=== PATIENT | male | born 1935 | race Caucasian/White ===

== ENCOUNTER → 2017-05-13 | Day surgery (SDC) | payer MEDICARE ==
[~2017-05-13] VITALS: Ht 172.7 cm; Wt 86.5 kg
[~2017-05-13] MED LIST: ACETAMINOPHEN 325 MG TAB PO PRN; ASPI81TA11 PO; CHLORHEXIDINE GLUCONATE 2 % 1 PACK (2 CLOTHS) TOPICAL PRN; CYCLOPENTOLATE HCL 1% OPHT SOLN 2 ML BTL ONE; DIAZ10TA PO; FLURBIPROFEN 0.03% OPHT SOLN 2.5 ML BTL ONE; GABA300C5 PO; IBUP-232 PO; INSULIN HUMAN REGULAR 1,000 UNITS/10 ML VIAL SQ PRN; LACTATED RINGER'S 1000 ML IV PRN; LEVA750T9 PO; LIDOCAINE HCL 1% PF 30 ML VIAL ONE; LIDOCAINE HCL 2% JELLY 5 ML SYRINGE ONE; LIDOCAINE HCL 2% JELLY 5 ML SYRINGE RIGHT EYE ONE; METOPROLOL TARTRATE 25 MG TAB PO PRN; METR-1 PO; PHENYLEPHRINE HCL 10% OPTH SOLN 5 ML BTL ONE; POVIDONE IODINE 5% (ANTISEPSIS KIT) 4 APPLICATIONS EACH NARE PRN; PROPARACAINE HCL 0.5% OPHT SOLN 15 ML BTL ONE; PROPARACAINE HCL 0.5% OPHT SOLN 15 ML BTL RIGHT EYE ONE; SODIUM CHLORID 0.9% 500 ML IV PRN; TOBRAMYCIN/DEXAMETHASONE OPTH OINT 3.5 GM TUBE ONE; TROPICAMIDE 1% OPHT SOLN 15 ML BTL ONE
[2017-05-13 06:50] VITALS: BP 159/92; PULSE 81; RESP 18; TEMP 98.4; O2SAT 98
[2017-05-13] MEDS: PHENYLEPHRINE HCL 10% OPTH SOLN 5 ML BTL RIGHT EYE SCH ×4 (07:00→07:15)
[2017-05-13] MEDS: TROPICAMIDE 1% OPHT SOLN 15 ML BTL RIGHT EYE SCH ×4 (07:00→07:15)
[2017-05-13] MEDS: FLURBIPROFEN 0.03% OPHT SOLN 2.5 ML BTL RIGHT EYE SCH ×4 (07:00→07:15)
[2017-05-13] MEDS: CYCLOPENTOLATE HCL 1% OPHT SOLN 2 ML BTL RIGHT EYE SCH ×4 (07:00→07:15)
[2017-05-13 08:16] VITALS: TEMP 97.4
[2017-05-13 08:40] VITALS: BP 150/81; PULSE 74; RESP 16; O2SAT 98
--- NOTE | 2017-05-13 09:55 | MP ---
cc: JAIME BOGGS M.D. [facility] #: [id number] DATE OF SURGERY 05/13/2017 PREOPERATIVE DIAGNOSIS: Visually significant cataract right eye. POSTOPERATIVE DIAGNOSIS: Visually significant cataract right eye. OPERATION: Phacoemulsification with posterior chamber lens implantation, right eye. SURGEON: Jaime Boggs MD ANESTHESIA: Topical with MAC. COMPLICATIONS: None. PROCEDURE: After informed consent was obtained, the patient was brought into the operative suite and placed on appropriate monitors by the Anesthesia Service. The patient had been given dilating drops and topical lidocaine gel in the holding area. The patient's operative eye was then prepped and draped in the usual sterile fashion. A wire lid speculum was placed. Further 2% lidocaine was then dropped on the cornea prior to beginning the procedure. A paracentesis incision was made in the peripheral cornea with a 1 mm glo keratome. The anterior chamber was filled with viscoelastic. The anterior chamber was then entered through a stepped, clear corneal incision using a sharp 3 mm glo keratome. A circular tear capsulorrhexis was then made with a bent needle cystitome. Following hydrodissection of the lens nucleus with balance saline, phacoemulsification of the nucleus was performed using a modified chopping technique. The remaining cortex was removed with irrigation/aspiration. The prior two procedures were both performed using the handpieces of the [employer] phaco unit. The capsular bag was then filled with viscoelastic. The intraocular lens was then injected into the capsular bag and positioned. The type of intraocular lens and its power can be found elsewhere in this chart. The remaining viscoelastic was then removed from the anterior chamber with the IA handpiece. The anterior chamber was reformed with balanced saline. The wound was then closed securely with stromal hydration. It was found to be watertight to an intraocular pressure of at least 30 mmHg by palpation. A small amount of balanced salt solution was then removed through the paracentesis site and the intraocular pressure at the end of the case was approximately 20 by palpation. All drapes were then removed. TobraDex ointment was then placed in the eye, which was closed beneath a semi-pressure patch dressing. The patient tolerated this procedure well and left the operating room awake and alert. The patient is to follow-up in my office in the morning. MD TRAVIS Willett/ROLAND /9:55 AM /9:58 AM
== END | disposition home or self-care (01) ==
LOC: PHSDC 06:21
PROVIDERS: ATTEND Optometrist Occupational Vision
DX: H25.811 Combined forms of age-related cataract, right eye (principal); H53.003 Unspecified amblyopia, bilateral; I12.9 Hypertensive chronic kidney disease with stage 1 through stage 4 chronic kidney disease, or unspecified chronic kidney disease; N18.9 Chronic kidney disease, unspecified; G62.9 Polyneuropathy, unspecified; E78.5 Hyperlipidemia, unspecified; D47.2 Monoclonal gammopathy; K57.90 Diverticulosis of intestine, part unspecified, without perforation or abscess without bleeding; Z85.828 Personal history of other malignant neoplasm of skin
CPT/HCPCS: 00142; 66984; J7040; V2632

== ENCOUNTER → 2017-06-27 | Day surgery (SDC) | payer MEDICARE ==
[~2017-06-27] VITALS: Ht 174 cm; Wt 86.0 kg
[~2017-06-27] MED LIST changes: +HYALURONIDASE/LIDOCAINE/EPINEPHRINE/BUPIVACAINE 6 ML SYR LEFT EYE ONE; -IBUP-232 PO; -LACTATED RINGER'S 1000 ML IV PRN; -LEVA750T9 PO; -LIDOCAINE HCL 2% JELLY 5 ML SYRINGE RIGHT EYE ONE; -METR-1 PO; +PROPARACAINE HCL 0.5% OPHT SOLN 15 ML BTL LEFT EYE ONE; -PROPARACAINE HCL 0.5% OPHT SOLN 15 ML BTL ONE; -PROPARACAINE HCL 0.5% OPHT SOLN 15 ML BTL RIGHT EYE ONE
[2017-06-27] MEDS: TROPICAMIDE 1% OPHT SOLN 15 ML BTL LEFT EYE SCH ×4 (07:10→07:25)
[2017-06-27] MEDS: CYCLOPENTOLATE HCL 1% OPHT SOLN 2 ML BTL LEFT EYE SCH ×4 (07:10→07:25)
[2017-06-27] MEDS: FLURBIPROFEN 0.03% OPHT SOLN 2.5 ML BTL LEFT EYE SCH ×4 (07:10→07:25)
[2017-06-27] MEDS: PHENYLEPHRINE HCL 10% OPTH SOLN 5 ML BTL LEFT EYE SCH ×4 (07:10→07:25)
[2017-06-27 09:00] VITALS: TEMP 97.7
[2017-06-27 09:20] VITALS: BP 157/82; PULSE 64; RESP 16; O2SAT 97
--- NOTE | 2017-06-29 22:18 | MP ---
cc: JIAME BOGGS MD [facility] #[id number] DATE OF SURGERY 06/27/17 POSTOPERATIVE DIAGNOSIS: Visually significant cataract left eye. OPERATION: Phacoemulsification with posterior chamber lens implantation, left eye. SURGEON: Jaime Boggs MD ANESTHESIA: Topical with MAC. COMPLICATIONS: None. PROCEDURE: After informed consent was obtained, the patient was brought into the operative suite and placed on appropriate monitors by the Anesthesia Service. The patient had been given dilating drops and topical lidocaine gel in the holding area. The patient's operative eye was then prepped and draped in the usual sterile fashion. A wire lid speculum was placed. Further 2% lidocaine was then dropped on the cornea prior to beginning the procedure. A paracentesis incision was made in the peripheral cornea with a 1 mm lynn keratome. The anterior chamber was filled with viscoelastic. The anterior chamber was then entered through a stepped, clear corneal incision using a sharp 3 mm lynn keratome. A circular tear capsulorrhexis was then made with a bent needle cystitome. Following hydrodissection of the lens nucleus with balance saline, phaco-emulsification of the nucleus was performed using a modified chopping technique. The remaining cortex was removed with irrigation/aspiration. The prior two procedures were both performed using the handpieces of the [employer] phaco unit. The capsular bag was then filled with viscoelastic. The intraocular lens was then injected into the capsular bag and positioned. The type of intraocular lens and its power can be found elsewhere in this chart. The remaining viscoelastic was then removed from the anterior chamber with the IA handpiece. The anterior chamber was reformed with balanced saline. The wound was then closed securely with stromal hydration. It was found to be watertight to an intraocular pressure of at least 30 mmHg by palpation. A small amount of balanced salt solution was then removed through the paracentesis site and the intraocular pressure at the end of the case was approximately 20 by palpation. All drapes were then removed. TobraDex ointment was then placed in the eye, which was closed beneath a semi-pressure patch dressing. The patient tolerated this procedure well and left the operating room awake and alert. The patient is to follow-up in my office in the morning. ADDENDUM After the clear corneal incisions were sealed watertight, an 8 mm limbal relaxing incision was made with a 600 micron Lynn blade centered around the nasal 180 degree [place]. MD TRAVIS Willett/ /10:42 AM /10:11 PM
== END | disposition home or self-care (01) ==
LOC: PHSDC 06:17
PROVIDERS: ATTEND Optometrist Occupational Vision
DX: H25.12 Age-related nuclear cataract, left eye (principal)
CPT/HCPCS: 00142; 66984; J7040; V2632

== ENCOUNTER 2018-02-24 01:21 | Observation (INO) | payer MEDICARE ==
[~2018-02-24] VITALS: Ht 170.2 cm; Wt 86.0 kg
[2018-02-24] VITALS (9 sets, daily range): BP systolic 120–165; BP diastolic 71–89; PULSE 76–96; RESP 16–20; TEMP 97.4–98.5; O2SAT 95–99
[~2018-02-24 01:21] MED LIST changes: -ACETAMINOPHEN 325 MG TAB PO PRN; -ASPI81TA11 PO; -CHLORHEXIDINE GLUCONATE 2 % 1 PACK (2 CLOTHS) TOPICAL PRN; -CYCLOPENTOLATE HCL 1% OPHT SOLN 2 ML BTL ONE; -FLURBIPROFEN 0.03% OPHT SOLN 2.5 ML BTL ONE; -HYALURONIDASE/LIDOCAINE/EPINEPHRINE/BUPIVACAINE 6 ML SYR LEFT EYE ONE; -INSULIN HUMAN REGULAR 1,000 UNITS/10 ML VIAL SQ PRN; -LIDOCAINE HCL 1% PF 30 ML VIAL ONE; -LIDOCAINE HCL 2% JELLY 5 ML SYRINGE ONE; -METOPROLOL TARTRATE 25 MG TAB PO PRN; -PHENYLEPHRINE HCL 10% OPTH SOLN 5 ML BTL ONE; -POVIDONE IODINE 5% (ANTISEPSIS KIT) 4 APPLICATIONS EACH NARE PRN; -PROPARACAINE HCL 0.5% OPHT SOLN 15 ML BTL LEFT EYE ONE; -SODIUM CHLORID 0.9% 500 ML IV PRN; -TOBRAMYCIN/DEXAMETHASONE OPTH OINT 3.5 GM TUBE ONE; -TROPICAMIDE 1% OPHT SOLN 15 ML BTL ONE
[2018-02-24] MEDS ORDERED: PANTOPRAZOLE INJ 80 MG in SODIUM CHLORIDE 0.9% INJ 35 ML IV ONE (02:00)
[2018-02-24] MEDS: SODIUM CHLOR 0.9% 1000 ML INJ 1,000 ML IV SCH ×3 (02:18→22:32)
[2018-02-24 02:20] LABS: AUTOMATED NEUTROPHIL # 6.6 TH/MM3 (1.8-7.7); BASOPHIL # 0.1 TH/MM3 (0-0.2); BASOPHIL % 0.7 % (0.0-2.0); EOSINOPHIL # 0.2 TH/MM3 (0-0.4); EOSINOPHIL % 2.3 % (0.0-4.0); HEMATOCRIT 31.9 % (39.0-51.0); HEMOGLOBIN 10.6 GM/DL (13.0-17.0); LYMPH % 20.5 % (9.0-44.0); MEAN CELL VOLUME 87.6 FL (80.0-100.0); MEAN CORPUSCULAR HEMOGLOBIN 29.3 PG (27.0-34.0); MEAN CORPUSCULAR HGB CONC 33.4 % (32.0-36.0); MEAN PLATELET VOLUME 7.6 FL (7.0-11.0); MONO % 7.1 % (0.0-8.0); MONOCYTE # 0.7 TH/MM3 (0-0.9); NEUT % 69.4 % (16.0-70.0); PLATELET COUNT 219 TH/MM3 (150-450); RED BLOOD COUNT 3.64 MIL/MM3 (4.50-5.90); WHITE BLOOD COUNT 9.6 TH/MM3 (4.0-11.0)
--- NOTE | 2018-02-24 02:20 | PD ---
HPI Chief Complaint: GI Complaint Time Seen by Provider: 01:49 Travel History International Travel<30 days: No Contact w/Intl Traveler<30days: No Traveled to known affect area: No History of Present Illness HPI The patient is an 82 year old male who presents to the [facility] emergency department with a history of bright red blood per rectum that he first noticed 2 weeks ago. He reports that he had a one-time episode at that time and then this evening around 10:30 PM he developed a recurrence. He reports that again at 1 AM he noticed another bloody stool. He reports that he felt lightheaded when this occurred. He denies having any lightheaded sensation currently, chest pain, chest pressure, or shortness of breath. He denies any prior history of GI bleed. He denies taking any [id number] anti-inflammatory pain medications. He reports that he is followed by Dr. Kothari for his GI care. He believes that his last colonoscopy was 4-5 years ago. He reports that he does have a history of diverticulitis. He denies any symptoms of indigestion, heartburn, or acid reflux. Otherwise on review of systems, he denies having any known recent fevers, cough or congestion, neck pain, abdominal pain, vomiting, urinary symptoms, or neurologic symptoms. 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 AICD: No Eye Surgery: Yes (RIGHT PHACO CATARACT REMOVAL) Joint Replacement: No Pacemaker: No Social History Alcohol Use: Yes (occ) Tobacco Use: No Substance Use: No Allergies-Medications (Allergen,Severity, Reaction): Coded Allergies: No Known Allergies (Unverified Allergy, Unknown, 02/24/18) Reported Meds & Prescriptions Reported Meds & Active Scripts Active Reported Gabapentin 300 Mg Cap 300 Mg PO BID Review of Systems Except as stated in HPI: all other systems reviewed are Neg General / Constitutional: No: Fever Eyes: No: Visual changes HENT: No: Headaches Cardiovascular: No: Chest Pain or Discomfort Respiratory: No: Shortness of Breath Gastrointestinal: Positive: Hematochezia, No: Nausea, Vomiting, Diarrhea, Abdominal Pain, Hematemesis, Changes in Bowel Habits, Indigestion, Loss of Appetite Genitourinary: No: Dysuria Musculoskeletal: No: Pain Skin: No Rash Neurologic: No: Weakness Psychiatric: No: Depression Endocrine: No: Polydipsia Hematologic/Lymphatic: No: Easy Bruising Physical Exam Narrative General: The patient is a well-developed well-nourished male in no acute distress, slightly pale appearing on exam. Head and Neck exam: Head is normocephalic atraumatic. Eyes: EOMI, pupils are equal round and reactive to light. Nose: Midline septum with pink mucous membranes Mouth: Dentition unremarkable. Moist mucus membranes. Posterior oropharynx is not erythematous. No tonsillar hypertrophy. Uvula midline. Airway patent. Neck: No palpable lymphadenopathy. No nuchal rigidity. No thyromegaly. Cardiovascular: Regular rate and rhythm with a 2/6 systolic murmur audible, no gallops or rub. No pulse deficit to the extremities on simultaneous auscultation and palpation of his radial artery. Lungs: Clear to auscultation bilaterally. No wheezes, rhonchi, or rales. Abdomen: Soft, without tenderness to palpation in all 4 quadrants of the abdomen. No guarding, rebound, or rigidity. Normal bowel sounds are audible. No tenderness on palpation of McBurney's point. Negative Felipe sign. Extremities: No clubbing or cyanosis. The patient has trace pedal edema bilateral lower extremities. 2+ pulses in all 4 extremities. No calf tenderness on palpation. Back: No spinous process tenderness to palpation. No costovertebral angle tenderness to palpation. Neurologic Exam: Grossly nonfocal. Skin Exam: No rash noted. Intact skin that is warm and dry. RECTAL EXAM: No masses or tenderness, no stool is present in the rectal vault. The patient had Hemoccult positive mucus. Data Data Last Documented VS Vital Signs Date Time Temp Pulse Resp B/P (MAP) Pulse Ox O2 Delivery O2 Flow Rate FiO2 02/24/18 02:18 20 02/24/18 01:30 98.5 96 98 Room Air Orders Orders Electrocardiogram (02/24/18 ) Electrocardiogram (02/24/18 01:49) Complete Blood Count With Diff (02/24/18 01:49) Comprehensive Metabolic Panel (02/24/18 01:49) Creatine Kinase (Cpk) (02/24/18 01:49) Ckmb (Isoenzyme) Profile (02/24/18 01:49) Troponin I (02/24/18 01:49) B-Type Natriuretic Peptide (02/24/18 01:49) Prothrombin Time / Inr (Pt) (02/24/18 01:49) Act Partial Throm Time (Ptt) (02/24/18 01:49) Lipase (02/24/18 01:49) Urinalysis - C+S If Indicated (02/24/18 01:49) Magnesium (Mg) (02/24/18 01:49) Chest, Single Ap (02/24/18 01:49) Iv Access Insert/Monitor (02/24/18 01:49) Ecg Monitoring (02/24/18 01:49) Oximetry (02/24/18 01:49) Type And Screen (02/24/18 01:49) Pantoprazole Inj (Protonix Inj) (02/24/18 02:00) Pantoprazole Inj (Protonix Inj) (02/24/18 02:00) Sodium Chlor 0.9% 1000 Ml Inj (Ns 1000 M (02/24/18 02:00) Ct Abd/Pel W/O Iv Contrast (02/24/18 03:32) Admit Order (Ed Use Only) (02/24/18 04:55) Consult Gastroenterology (02/24/18 ) Place In Observation (02/24/18 ) Vital Signs (Adult) Q4H (02/24/18 04:54) Activity Oob With Assistance (02/24/18 04:54) Intake + Output DESTINEE.QSHIFT (02/24/18 04:54) Diet Regular Basic (02/24/18 Breakfast) Sodium Chloride 0.9% Flush (Ns Flush) (02/24/18 05:00) Sodium Chloride 0.9% Flush (Ns Flush) (02/24/18 09:00) Ondansetron Inj (Zofran Inj) (02/24/18 05:00) Comprehensive Metabolic Panel (02/25/18 06:00) Complete Blood Count With Diff (02/25/18 06:00) Pharmacologic Contraindication (02/24/18 04:54) Acetaminophen (Tylenol) (02/24/18 05:00) Acetamin-Hydrocod 325-5 Mg ([place] 5-325 (02/24/18 05:00) Acetamin-Hydrocod 325-10 Mg ([place] 10-32 (02/24/18 05:00) Docusate Sodium-Senna (Suyapa-Colace) (02/24/18 09:00) Magnesium Hydroxide Liq (Milk Of Magnesi (02/24/18 05:00) Sennosides (Senokot) (02/24/18 05:00) Bisacodyl Supp (Dulcolax Supp) (02/24/18 05:00) Lactulose Liq (Lactulose Liq) (02/24/18 05:00) Hgb & Hct (02/24/18 12:00) Gabapentin (Neurontin) (02/24/18 09:00) Labs Laboratory Tests Test 02/24/18 02:00 White Blood Count 9.6 TH/MM3 Red Blood Count 3.64 MIL/MM3 Hemoglobin 10.6 GM/DL Hematocrit 31.9 % Mean Corpuscular Volume 87.6 FL Mean Corpuscular Hemoglobin 29.3 PG Mean Corpuscular Hemoglobin Concent 33.4 % Red Cell Distribution Width 13.0 % Platelet Count 219 TH/MM3 Mean Platelet Volume 7.6 FL Neutrophils (%) (Auto) 69.4 % Lymphocytes (%) (Auto) 20.5 % Monocytes (%) (Auto) 7.1 % Eosinophils (%) (Auto) 2.3 % Basophils (%) (Auto) 0.7 % Neutrophils # (Auto) 6.6 TH/MM3 Lymphocytes # (Auto) 2.0 TH/MM3 Monocytes # (Auto) 0.7 TH/MM3 Eosinophils # (Auto) 0.2 TH/MM3 Basophils # (Auto) 0.1 TH/MM3 CBC Comment DIFF FINAL Differential Comment Prothrombin Time 10.5 SEC Prothromb Time International Ratio 1.0 RATIO Activated Partial Thromboplast Time 22.6 SEC Blood Urea Nitrogen 59 MG/DL Creatinine 3.04 MG/DL Random Glucose 146 MG/DL Total Protein 6.5 GM/DL Albumin 3.2 GM/DL Calcium Level 9.1 MG/DL Magnesium Level 2.4 MG/DL Alkaline Phosphatase 74 U/L Aspartate Amino Transf (AST/SGOT) 21 U/L Alanine Aminotransferase (ALT/SGPT) 21 U/L Total Bilirubin 0.2 MG/DL Sodium Level 142 MEQ/L Potassium Level 4.6 MEQ/L Chloride Level 108 MEQ/L Carbon Dioxide Level 24.1 MEQ/L Anion Gap 10 MEQ/L Estimat Glomerular Filtration Rate 20 ML/MIN Total Creatine Kinase 74 U/L Troponin I 0.02 NG/ML B-Type Natriuretic Peptide 52 PG/ML Lipase 128 U/L MDM Medical Decision Making Medical Screen Exam Complete: Yes Emergency Medical Condition: Yes Medical Record Reviewed: Yes Differential Diagnosis Diverticular bleed, versus AVM malformation, versus hemorrhoidal bleed, versus peptic ulcer related bleeding Narrative Course During the course of the patient's emergency department visit, the patient's history, examination, and differential diagnosis were reviewed with the patient. The patient was placed on a threat monitoring analyst with oximetry and frequent blood pressure monitoring. The patient had IV access obtained and blood work sent for analysis. An EKG done on arrival shows a sinus rhythm with frequent supraventricular premature complexes, no acute ST segment elevation, heart rate is 95, QRS duration is 86 ms, QTC 387 ms. T waves are inverted in V1. The patient was typed and screened for blood administration if necessary. The patient was initially provided normal saline IV fluids, Protonix 80 mg IV, followed by a Protonix drip. The patient's laboratory studies were reviewed and remarkable for a white count of 9.6, hemoglobin 10.6, platelets 219 with a normal differential. CMP is remarkable for chloride of 108, BUN 59, creatinine 3.06 which is slightly worsened compared to his last creatinine at this facility with a creatinine of 2.61 in February 2015. Glucose is 146, cardiac enzymes within normal limits, BNP 52 , lipase 128. PT PTT unremarkable. Radiology studies were reviewed and remarkable for a chest x-ray that shows bibasilar atelectasis, no confluent infiltrate. 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 The patient's results were discussed with the patient, including the plan of care. I explained that further testing and/ or monitoring is indicated based on the patient's history, examination, and/ or laboratory findings. Therefore, I recommended admission for additional evaluation. The patient expressed understanding and was agreeable with this plan. The patient was admitted to the hospital in stable condition and [facility] Physician Communication Physician Communication The patient's case including history, pertinent physical examination findings, and laboratory studies were discussed with Dr. Winston. It was agreed that the patient would be admitted to the [facility] service. Diagnosis Primary Impression: GI bleed Qualified Codes: K92.2 - Gastrointestinal hemorrhage, unspecified Admitting Information Admitting Physician Requests: Debbie Lagunas MD Feb 24, 2018 02:20
[2018-02-24 02:34] LABS: PROTHROMBIN TIME - PATIENT 10.5 SEC (9.8-11.6)
[2018-02-24 02:36] LABS: ALBUMIN 3.2 GM/DL (3.4-5.0); ALT (GPT) 21 U/L (12-78); AST (GOT) 21 U/L (15-37); BICARBONATE 24.1 MEQ/L (21.0-32.0); BLOOD UREA NITROGEN 59 MG/DL (7-18); CALCIUM 9.1 MG/DL (8.5-10.1); CHLORIDE 108 MEQ/L (98-107); CREATININE 3.04 MG/DL (0.60-1.30); GLOMERULAR FILTRATION RATE 20 ML/MIN (>89); GLUCOSE,RANDOM 146 MG/DL (74-106); MAGNESIUM 2.4 MG/DL (1.5-2.5); SODIUM (NA) 142 MEQ/L (136-145)
--- NOTE | 2018-02-24 02:36 | RADRPT ---
EXAM DATE/TIME: 02/24/2018 01:53 [facility] COMPARISON: No previous studies available for comparison. INDICATIONS : Cough- Rectal bleeding. MEDICAL HISTORY : Atrial premature complex, Diverticulosis, Hypertension, CDK. SURGICAL HISTORY : None. ENCOUNTER: Initial ACUITY: 1 day PAIN SCORE: 0/10 LOCATION: Bilateral chest FINDINGS: A single view of the chest demonstrates the lungs to be symmetrically aerated with bibasilar atelecta sis/scarring. No confluent infiltrate or effusion. Heart size is normal. Degenerative spurring of the dorsal spine. CONCLUSION: Bibasilar atelectasis/scarring. No confluent infiltrate. Stan Vizcaino MD on February 24, 2018 at 2:33 Board Certified Radiologist. This report was verified electronically.
[2018-02-24 02:38] LABS: ALKALINE PHOSPHATASE 74 U/L (45-117); TOTAL BILIRUBIN ADULT 0.2 MG/DL (0.2-1.0); TOTAL PROTEIN 6.5 GM/DL (6.4-8.2); TROPONIN I 0.02 NG/ML (0.02-0.05)
[2018-02-24] MEDS: PANTOPRAZOLE INJ 80 MG in SODIUM CHLORIDE 0.9% INJ 100 ML IV SCH ×2 (02:43→17:08)
--- NOTE | 2018-02-24 04:36 | RADRPT ---
EXAM DATE/TIME: 02/24/2018 03:42 [facility] COMPARISON: CHEST SINGLE AP, February 24, 2018, 1:53. INDICATIONS : Blood in stool. ORAL CONTRAST: No oral contrast ingested. RADIATION DOSE: 8.94 CTDIvol (mGy) MEDICAL HISTORY : Hypertension. Cardiovascular disease Renal insufficiency, chronic.Diverticulosis SURGICAL HISTORY : None. ENCOUNTER: Initial ACUITY: 1 day PAIN SCALE: 0/10 LOCATION: abdomen TECHNIQUE: Volumetric scanning of the abdomen and pelvis was performed. Using automated exposure control and ad justment of the mA and/or kV according to patient size, radiation dose was kept as low as reasonably achievable to obtain optimal diagnostic quality images. DICOM format image data is available electro nically for review and comparison. FINDINGS: LOWER LUNGS: Right basilar and left lingular atelectasis/scarring. Some calcification of the aortic root. Mild per icardial thickening LIVER: Dystrophic parenchymal calcification posteriorly in the upper right lobe. There is no dilation of th e biliary tree. No calcified gallstones. SPLEEN: Normal size without lesion. PANCREAS: Within normal limits. KIDNEYS: Multiple cortical nodules bilaterally. There is a 1.5 cm fat containing lesion posteriorly in the lef t midpole characteristic of a benign angiomyolipoma. However, multiple nodules appear more solid and cannot be classified as simple cysts.. ADRENAL GLANDS: Within normal limits. VASCULAR: There is no aortic aneurysm. BOWEL/MESENTERY: 10 disease of the descending and sigmoid colon without diverticulitis. ABDOMINAL WALL: Within normal limits. RETROPERITONEUM: There is no lymphadenopathy. BLADDER: No wall thickening or mass. REPRODUCTIVE: Within normal limits. INGUINAL: There is no lymphadenopathy or hernia. MUSCULOSKELETAL: Levoscoliosis of the lumbar spine with associated degenerative spurring. CONCLUSION: 1. 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 2. Multiple nodular densities in both kidneys cannot be classified as simple cysts. Nonemergent ultra sound or pre-and post contrast MRI could be performed for further characterization. 3. Diverticular disease in the descending and sigmoid colon without diverticulitis. 4. Calcification of the aortic root with some dystrophic type calcification in the posterior parenchy ma of the upper right hepatic lobe. 5. Linear atelectasis or scarring in the right lower lobe and left lingula Stan Vizcaino MD on February 24, 2018 at 4:27 Board Certified Radiologist. This report was verified electronically.
[2018-02-24] MEDS ORDERED: ONDANSETRON HCL 4 MG/2 ML VIAL IVP PRN (05:00)
[2018-02-24] MEDS ORDERED: ACETAMINOPHEN/HYDROcodone 325 MG/5 MG TAB PO PRN (05:00)
[2018-02-24] MEDS ORDERED: BISACODYL 10 MG SUPP RECTAL PRN (05:00)
[2018-02-24] MEDS ORDERED: SODIUM CHLORIDE 0.9% FLUSH 10 ML FLUSH IV FLUSH PRN (05:00)
[2018-02-24] MEDS ORDERED: ACETAMINOPHEN/HYDROcodone 325 MG/10 MG TAB PO PRN (05:00)
[2018-02-24] MEDS ORDERED: ACETAMINOPHEN 325 MG TAB PO PRN (05:00)
[2018-02-24] MEDS ORDERED: MAGNESIUM HYDROXIDE SUSP 30 ML CUP PO PRN (05:00)
[2018-02-24] MEDS ORDERED: ALPRAZolam 0.25 MG TAB PO PRN (05:00)
[2018-02-24] MEDS ORDERED: SENNOSIDES 8.6 MG TAB PO PRN (05:00)
[2018-02-24] MEDS ORDERED: LACTULOSE SYRUP 20 GM/30 ML CUP PO PRN (05:00)
--- NOTE | 2018-02-24 05:15 | HHI.HP ---
[facility] Service [facility] Primary Care Physician Alvino Black M.D. Admission Diagnosis GI Bleed Diagnoses: (1) GI bleed Diagnosis: Principal (2) CKD (chronic kidney disease) stage 4, GFR 15-29 ml/min Diagnosis: Principal (3) Anxiety Diagnosis: Principal Travel History International Travel<30 Days: No Contact w/Intl Traveler <30 Da: No Traveled to Known Affected Are: No History of Present Illness This is an 82-year-old male with a PMH of Angiomyolipoma and CKD Stage IV who presented to the ER w/ complaints of rectal bleeding. at bedside states similar event approx 2 wks ago w/ small amount of bloody stool, did not seek medical attention at that time and symptoms resolved spontaneously. Tonight, pt w/ 2 episodes of bright red blood per rectum, notes "clots" at which time they came to the ER. No h/o GI Bleed, not on ASA or anticoagulation. On arrival, BP 122/71, HR 95, O2 sat 96% on RA, Afebrile. Hemoglobin 10.6, previously 13.1 on 10/10/2016. Creatinine 3.04, previously 2.6105 1215. INR 1.0. CXR with bibasilar atelectasis. 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 Hemoccult + on exam. Pt reluctant to be admitted, but ultimately agreed. Review of Systems Except as stated in HPI: all other systems reviewed are Neg ROS: 14 point review of systems otherwise negative. Past Family Social History Past Medical History PMH: Angiomyolipoma and CKD Stage IV Past Surgical History PAST SURGICAL HISTORY: Right Cataract Removal Allergies: Coded Allergies: No Known Allergies (Unverified Allergy, Unknown, 02/24/18) Family History PAST FAMILY HISTORY: Reviewed. No h/o DM or CAD Social History PAST SOCIAL HISTORY: Occasional alcohol. Negative for tobacco or drugs. Physical Exam Vital Signs Vital Signs Date Time Temp Pulse Resp B/P (MAP) Pulse Ox O2 Delivery O2 Flow Rate FiO2 02/24/18 02:18 20 02/24/18 01:30 98.5 96 20 122/71 (88) 98 Room Air 02/24/18 01:25 98.5 95 20 122/71 (88) 96 Physical Exam PE: GENERAL: Pleasant elderly white male in no acute distress, appears significantly younger than his stated age. and daughter at bedside. HEENT: PERRLA, EOMI. No scleral icterus or conjunctival pallor. No lid lag or facial droop. CARDIOVASCULAR: Regular rate and rhythm. No obvious murmurs to auscultation. No chest tenderness to palpation. RESPIRATORY: No obvious rhonchi or wheezing. Clear to auscultation. Breath sounds equal bilaterally. GASTROINTESTINAL: Abdomen soft, non-tender, nondistended. BS normal. MUSCULOSKELETAL: Extremities without clubbing, cyanosis, or edema. No obvious deformities. NEUROLOGICAL: Awake, alert and oriented x4, mildly anxious. No focal neurologic deficits. Moving both upper and lower extremities spontaneously. Laboratory Laboratory Tests Test 02/24/18 02:00 White Blood Count 9.6 Red Blood Count 3.64 Hemoglobin 10.6 Hematocrit 31.9 Mean Corpuscular Volume 87.6 Mean Corpuscular Hemoglobin 29.3 Mean Corpuscular Hemoglobin Concent 33.4 Red Cell Distribution Width 13.0 Platelet Count 219 Mean Platelet Volume 7.6 Neutrophils (%) (Auto) 69.4 Lymphocytes (%) (Auto) 20.5 Monocytes (%) (Auto) 7.1 Eosinophils (%) (Auto) 2.3 Basophils (%) (Auto) 0.7 Neutrophils # (Auto) 6.6 Lymphocytes # (Auto) 2.0 Monocytes # (Auto) 0.7 Eosinophils # (Auto) 0.2 Basophils # (Auto) 0.1 CBC Comment DIFF FINAL Differential Comment Prothrombin Time 10.5 Prothromb Time International Ratio 1.0 Activated Partial Thromboplast Time 22.6 Blood Urea Nitrogen 59 Creatinine 3.04 Random Glucose 146 Total Protein 6.5 Albumin 3.2 Calcium Level 9.1 Magnesium Level 2.4 Alkaline Phosphatase 74 Aspartate Amino Transf (AST/SGOT) 21 Alanine Aminotransferase (ALT/SGPT) 21 Total Bilirubin 0.2 Sodium Level 142 Potassium Level 4.6 Chloride Level 108 Carbon Dioxide Level 24.1 Anion Gap 10 Estimat Glomerular Filtration Rate 20 Total Creatine Kinase 74 Troponin I 0.02 B-Type Natriuretic Peptide 52 Lipase 128 Result Diagram: 02/24/1819902/24/18199 Caprini VTE Risk Assessment Caprini VTE Risk Assessment: No/Low Risk (score <= 1) VTE Pharm Contraindication: Active bleeding Caprini Risk Assessment Model Point Value = 1 Point Value = 2 Point Value = 3 Point Value = 5 Age 41-60 Minor surgery BMI > 25 kg/m2 Swollen legs Varicose veins or History of unexplained or recurrent spontaneous Oral contraceptives or hormone replacement Sepsis (< 1 month) Serious lung disease, including pneumonia (< 1 month) Abnormal pulmonary function Acute myocardial infarction Congestive heart failure (< 1 month) History of inflammatory bowel disease Medical patient at bed rest Age 61-74 Arthroscopic surgery Major open surgery (> 45 min) Laparoscopic surgery (> 45 min) Malignancy Confined to bed (> 72 hours) Immobilizing plaster cast Central venous access Age >= 75 History of VTE Family history of VTE Factor V Leiden Prothrombin [id number] Lupus anticoagulant Anticardiolipin antibodies Elevated serum homocysteine Heparin-induced thrombocytopenia Other congenital or acquired thrombophilia Stroke (< 1 month) Elective arthroplasty Hip, pelvis, or leg fracture Acute spinal cord injury (< 1 month) Prophylaxis Regimen Total Risk Factor Score Risk Level Prophylaxis Regimen 0-1 Low Early ambulation 2 Moderate Order ONE of the following: *Sequential Compression Device (SCD) *Heparin 5000 units SQ BID 3-4 Higher Order ONE of the following medications: *Heparin 5000 units SQ TID *Enoxaparin/Lovenox 40 mg SQ daily (WT < 150 kg, CrCl > 30 mL/min) *Enoxaparin/Lovenox 30 mg SQ daily (WT < 150 kg, CrCl > 10-29 mL/min) *Enoxaparin/Lovenox 30 mg SQ BID (WT < 150 kg, CrCl > 30 mL/min) AND/OR *Sequential Compression Device (SCD) 5 or more Highest Order ONE of the following medications: *Heparin 5000 units SQ TID (Preferred with Epidurals) *Enoxaparin/Lovenox 40 mg SQ daily (WT < 150 kg, CrCl > 30 mL/min) *Enoxaparin/Lovenox 30 mg SQ daily (WT < 150 kg, CrCl > 10-29 mL/min) *Enoxaparin/Lovenox 30 mg SQ BID (WT < 150 kg, CrCl > 30 mL/min) AND *Sequential Compression Device (SCD) Assessment and Plan Problem List: (1) GI bleed ICD Code: K92.2 - Gastrointestinal hemorrhage, unspecified (2) CKD (chronic kidney disease) stage 4, GFR 15-29 ml/min ICD Code: N18.4 - Chronic kidney disease, stage 4 (severe) (3) Anxiety ICD Code: F41.9 - Anxiety disorder, unspecified Assessment and Plan A/P: 1. GI Bleed: c/o rectal bleed x3, 1 episode 2wks ago and 2 episodes tonight, no h/o GI Bleed in the past, not on ASA or anticoagulation. Hgb 10.6, previously 13.1 on 10/10/16. Will repeat Hgb/Hct for trend, transfuse as needed for Hgb <7 or if hemodynamically unstable. Consult GI for further evaluation/intervention. 2. CKD: Stage IV, pt states baseline GFR 19-20. Currently at baseline. Will monitor, repeat labs in am. 3. Anxiety: Pt w/ significant anxiety about being admitted, initially declined admit, no agreeable but "only for one night". Xanax prn. 4. DVT Prophylaxis: Pharmacologic contraindication due to active rectal bleed. 5. Social work for d/c planning as needed. 6. Case discussed w/ ER physician at length, labs/records/imaging reviewed by me. Wendi Winston MD Feb 24, 2018 05:15
[2018-02-24 05:58] LABS: BILIRUBIN, URINE NEG (NEG); BLOOD, URINE NEG (NEG); GLUCOSE,URINE NEG (NEG); HYALINE CAST, URINE 3 /lpf (RARE); KETONE, URINE NEG (NEG); MUCUS URINE FEW /lpf (OCC); NITRITE,URINE NEG (NEG); URINE COLOR LIGHT-YELLOW (YELLW/STRAW); URINE LEUKOCYTE ESTERASE NEG (NEG)
[2018-02-24] MEDS ORDERED: PEG (High)/E-LYTE SOLN 4000 ML BTL PO SCH (06:45)
[2018-02-24] MEDS: SODIUM CHLORIDE 0.9% FLUSH 10 ML FLUSH IV FLUSH SCH ×2 (09:00→20:02)
[2018-02-24] MEDS: GABAPENTIN 300 MG CAP PO SCH ×2 (09:00→22:31)
[2018-02-24] MEDS: DOCUSATE SODIUM 50 MG/SENNA 8.6 MG TAB PO SCH ×2 (09:01→20:05)
--- NOTE | 2018-02-24 09:14 | PD.CONS ---
HPI History of Present Illness This is a 82 year old male who presented to ER with rectal bleeding. He had an episode of rectal bleeding with BM that resolved and then bleeding started again yesterday. DArk and red blood and clots with stool. NO bleeding independently of stool. Denies abd pain, black tarry stool, n/v, prior hx GIB, weight loss. His last colonoscopy was 5-[address] Kothari and polyps was found. He is not sure if he has had EGD. No NSAIDs. (Sana Cevallos) PFSH Past Medical History PMH: Angiomyolipoma and CKD Stage IV neuropathy Past Surgical History PAST SURGICAL HISTORY: Right Cataract Removal (Sana Cevallos) Coded Allergies: No Known Allergies (Unverified Allergy, Unknown, 02/24/18) Family History PAST FAMILY HISTORY: Reviewed. No h/o DM or CAD Social History PAST SOCIAL HISTORY: Occasional alcohol. Negative for tobacco or drugs. (Sana Cevallos) Review of Systems Constitutional: DENIES: Fever Endocrine: DENIES: Polydipsia Eyes: DENIES: Blurred vision Ears, nose, mouth, throat: DENIES: Hearing loss Respiratory: DENIES: Cough Cardiovascular: DENIES: Chest pain Gastrointestinal: COMPLAINS OF: Bloody stools, DENIES: Abdominal pain, Black stools, Nausea, Vomiting Genitourinary: DENIES: Hematuria Musculoskeletal: DENIES: Muscle aches Integumentary: DENIES: Abnormal pigmentation Hematologic/lymphatic: DENIES: Bruising Immunologic/allergic: DENIES: Eczema Neurologic: DENIES: Abnormal gait Psychiatric: DENIES: Confusion (Sana Cevallos) GI Exam Vitals I&O Vital Signs Date Time Temp Pulse Resp B/P (MAP) Pulse Ox O2 Delivery O2 Flow Rate FiO2 02/24/18 08:05 97.6 79 16 156/89 (111) 97 02/24/18 06:19 98.0 88 16 149/77 (101) 97 02/24/18 05:00 98.0 87 20 120/80 (93) 97 Room Air 02/24/18 02:18 20 02/24/18 01:30 98.5 96 20 122/71 (88) 98 Room Air 02/24/18 01:25 98.5 95 20 122/71 (88) 96 Imaging Last Impressions Abdomen/Pelvis CT 02/24/18 0332 Signed Impressions: Service Date/Time: Saturday, February 24, 2018 03:42 - CONCLUSION: 1. 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 2. Multiple nodular densities in both kidneys cannot be classified as simple cysts. Nonemergent ultrasound or pre-and post contrast MRI could be performed for further characterization. 3. Diverticular disease in the descending and sigmoid colon without diverticulitis. 4. Calcification of the aortic root with some dystrophic type calcification in the posterior parenchyma of the upper right hepatic lobe. 5. Linear atelectasis or scarring in the right lower lobe and left lingula Stan Vizcaino MD Chest X-Ray 02/24/18 0149 Signed Impressions: Service Date/Time: Saturday, February 24, 2018 01:53 - CONCLUSION: Bibasilar atelectasis/scarring. No confluent infiltrate. Stan Vizcaino MD Laboratory Test 02/24/18 02:00 02/24/18 05:30 White Blood Count 9.6 TH/MM3 Red Blood Count 3.64 MIL/MM3 Hemoglobin 10.6 GM/DL Hematocrit 31.9 % Mean Corpuscular Volume 87.6 FL Mean Corpuscular Hemoglobin 29.3 PG Mean Corpuscular Hemoglobin Concent 33.4 % Red Cell Distribution Width 13.0 % Platelet Count 219 TH/MM3 Mean Platelet Volume 7.6 FL Neutrophils (%) (Auto) 69.4 % Lymphocytes (%) (Auto) 20.5 % Monocytes (%) (Auto) 7.1 % Eosinophils (%) (Auto) 2.3 % Basophils (%) (Auto) 0.7 % Neutrophils # (Auto) 6.6 TH/MM3 Lymphocytes # (Auto) 2.0 TH/MM3 Monocytes # (Auto) 0.7 TH/MM3 Eosinophils # (Auto) 0.2 TH/MM3 Basophils # (Auto) 0.1 TH/MM3 CBC Comment DIFF FINAL Differential Comment Prothrombin Time 10.5 SEC Prothromb Time International Ratio 1.0 RATIO Activated Partial Thromboplast Time 22.6 SEC Blood Urea Nitrogen 59 MG/DL Creatinine 3.04 MG/DL Random Glucose 146 MG/DL Total Protein 6.5 GM/DL Albumin 3.2 GM/DL Calcium Level 9.1 MG/DL Magnesium Level 2.4 MG/DL Alkaline Phosphatase 74 U/L Aspartate Amino Transf (AST/SGOT) 21 U/L Alanine Aminotransferase (ALT/SGPT) 21 U/L Total Bilirubin 0.2 MG/DL Sodium Level 142 MEQ/L Potassium Level 4.6 MEQ/L Chloride Level 108 MEQ/L Carbon Dioxide Level 24.1 MEQ/L Anion Gap 10 MEQ/L Estimat Glomerular Filtration Rate 20 ML/MIN Total Creatine Kinase 74 U/L Troponin I 0.02 NG/ML B-Type Natriuretic Peptide 52 PG/ML Lipase 128 U/L Urine Color LIGHT-YELLOW Urine Turbidity CLEAR Urine pH 5.0 Urine Specific [place] 1.013 Urine Protein NEG mg/dL Urine Glucose (UA) NEG mg/dL Urine Ketones NEG mg/dL Urine Occult Blood NEG Urine Nitrite NEG Urine Bilirubin NEG Urine Urobilinogen LESS THAN 2.0 MG/DL Urine Leukocyte Esterase NEG Urine RBC LESS THAN 1 /hpf Urine WBC LESS THAN 1 /hpf Urine Hyaline Casts 3 /lpf Urine Mucus FEW /lpf Microscopic Urinalysis Comment CULT NOT INDICATED Physical Examination HEENT: PERRL; normocephalic; atraumatic; no jaundice. CHEST: CTA CARDIAC: irr HR + murmur ABDOMEN: Soft, nondistended, nontender; no hepatosplenomegaly; bowel sounds are present in all four quadrants. EXTREMITIES: No clubbing, cyanosis, or edema. SKIN: Normal; no rash; no jaundice. SUBCONTRACT ADMINISTRATOR: No focal deficits; alert and oriented times three. (Sana Cevallos) Assessment and Plan Plan ASSESSMENT - rectal bleeding - episode rectal bleeding with BM last night and also episode 2 wks ago that did resolve last colonoscopy 5-6 y ago, polyp. NO other GI sx. CT showed diverticulosis. could be diverticular bleed - anemia - hgb 10.6 normocytic. 2/2 above PLAN - EGD and colonoscopy later today - golytely prep -monitor HH - further recs to follow pt seen by myself and Dr Mathew and this note is on his behalf (Sana Cevallos) Plan Patient was seen and examined, agree with above note, patient has dark stool, and blood, he has diverticulosis, this could be diverticular disease, will do upper endoscopy to rule out peptic ulcer disease and colonoscopy to rule out diverticular bleed, patient started on GoLYTELY and will do these procedures later today (Mayank Mathew MD) Sana Cevallos Feb 24, 2018 09:14 Mayank Mathew MD Feb 24, 2018 15:46
[2018-02-24 09:53] LABS: HEMATOCRIT 32.3 % (39.0-51.0); HEMOGLOBIN 10.6 GM/DL (13.0-17.0)
[2018-02-24 10:12] LABS: IRON (FE) 46 MCG/DL (65-175)
[2018-02-24 10:37] LABS: % SATURATION IRON PROFILE 15.1 % (20-50); FERRITIN 108 NG/ML (26-388); TOTAL IRON BINDING CAPACITY 304 MCG/DL (250-450)
[2018-02-24 10:40] LABS: FOLATE GREATER THAN 20.0 NG/ML (3.1-17.5)
[2018-02-24 11:01] LABS: HEMOGLOBIN A1C 5.8 % (4.3-6.0)
[2018-02-24] MEDS ORDERED: cloNIDine HCL 0.1 MG TAB PO PRN (11:45)
--- NOTE | 2018-02-24 11:51 | HHI.PR ---
Subjective Remarks Follow-up on patient with rectal bleed. Patient seen and examined. Patient states he feels well and denies any acute medical complaints at this time. States he has had a bowel movement this morning and denies any evidence of bloody/tarry/black stools. Patient had his last colonoscopy with Dr. Hyatt 5-6 years ago with polypectomy. Patient denies any nausea vomiting or abdominal pain. Denies any fever chills. Denies any chest pain or shortness of breath. He has already been evaluated by gastroenterology and is n.p.o. and taking prep for colonoscopy planned for later today Objective Vitals Vital Signs Date Time Temp Pulse Resp B/P (MAP) Pulse Ox O2 Delivery O2 Flow Rate FiO2 02/24/18 11:26 97.6 88 16 152/76 (101) 99 02/24/18 08:05 97.6 79 16 156/89 (111) 97 02/24/18 06:19 98.0 88 16 149/77 (101) 97 02/24/18 05:00 98.0 87 20 120/80 (93) 97 Room Air 02/24/18 02:18 20 02/24/18 01:30 98.5 96 20 122/71 (88) 98 Room Air 02/24/18 01:25 98.5 95 20 122/71 (88) 96 Result Diagram: 02/24/18 0930 02/24/18 0200 Imaging Last Impressions Abdomen/Pelvis CT 02/24/18 0332 Signed Impressions: Service Date/Time: Saturday, February 24, 2018 03:42 - CONCLUSION: 1. 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 2. Multiple nodular densities in both kidneys cannot be classified as simple cysts. Nonemergent ultrasound or pre-and post contrast MRI could be performed for further characterization. 3. Diverticular disease in the descending and sigmoid colon without diverticulitis. 4. Calcification of the aortic root with some dystrophic type calcification in the posterior parenchyma of the upper right hepatic lobe. 5. Linear atelectasis or scarring in the right lower lobe and left lingula Stan Vizcaino MD Chest X-Ray 02/24/18 0149 Signed Impressions: Service Date/Time: Saturday, February 24, 2018 01:53 - CONCLUSION: Bibasilar atelectasis/scarring. No confluent infiltrate. Stan Vizcaino MD Objective Remarks GENERAL: Well developed, well nourished elderly white male in no acute distress , appears significantly younger than his stated age. Awake and alert. Sitting up in bed. Appears comfortable. HEENT: NC/AT. PERRLA, EOMI. No scleral icterus or conjunctival pallor. No lid lag or facial droop. Airway patent. MMM. CARDIOVASCULAR: Regular rate and rhythm. No obvious murmurs to auscultation. No chest tenderness to palpation. RESPIRATORY: Nonlabored. No obvious rhonchi or wheezing. Clear to auscultation. Breath sounds equal bilaterally. GASTROINTESTINAL: Abdomen soft, non-tender, nondistended. BS normal. MUSCULOSKELETAL: Extremities without clubbing, cyanosis, or edema. No obvious deformities. NEUROLOGICAL: Awake, alert and oriented x4. No focal neurologic deficits. Moving both upper and lower extremities spontaneously. Normal speech. PSYCHIATRIC: Appropriate mood and affect. Normal judgment and insight. Calm and cooperative. Medications and IVs Current Medications Medications (Trade) Dose Ordered Sig/Cuauhtemoc Route Start Time Stop Time Status Last Admin Pantoprazole Sodium 80 mg/ Sodium Chloride 100 ml @ 10 mls/hr CONTINUOUS IV 02/24/18 02:00 02/24/18 02:43 Sodium Chloride 1,000 ml @ 100 mls/hr Q10H IV 02/24/18 02:00 02/24/18 02:18 (NS Flush) 2 ml UNSCH PRN IV FLUSH 02/24/18 05:00 (NS Flush) 2 ml BID IV FLUSH 02/24/18 09:00 02/24/18 09:00 (Zofran Inj) 4 mg Q6H PRN IVP 02/24/18 05:00 (Tylenol) 650 mg Q6H PRN PO 02/24/18 05:00 ([place] 5-325 Mg) 1 tab Q4H PRN PO 02/24/18 05:00 ([place] 10-325 Mg) 1 tab Q4H PRN PO 02/24/18 05:00 (Suyapa-Colace) 1 tab BID PO 02/24/18 09:00 (Milk Of Magnesia Liq) 30 ml Q12H PRN PO 02/24/18 05:00 (Senokot) 17.2 mg Q12H PRN PO 02/24/18 05:00 (Dulcolax Supp) 10 mg DAILY PRN RECTAL 02/24/18 05:00 (Lactulose Liq) 30 ml DAILY PRN PO 02/24/18 05:00 (Neurontin) 300 mg BID PO 02/24/18 09:00 02/24/18 09:00 (Xanax) 0.25 mg Q8H PRN PO 02/24/18 05:00 A/P Problem List: (1) GI bleed ICD Code: K92.2 - Gastrointestinal hemorrhage, unspecified (2) CKD (chronic kidney disease) stage 4, GFR 15-29 ml/min ICD Code: N18.4 - Chronic kidney disease, stage 4 (severe) (3) Anxiety ICD Code: F41.9 - Anxiety disorder, unspecified Assessment and Plan 82-year-old male with a PMH of Angiomyolipoma and CKD Stage IV who presented to the ER w/ complaints of rectal bleeding. GIB: c/o rectal bleed x3, 1 episode 2wks ago and 2 episodes tonight, no h/o GI Bleed in the past, not on ASA or anticoagulation. History of diverticulosis GI following, appreciate assistance -continue on Protonix gtt and IVF -keep NPO -bowel prep -patient plan for colonoscopy later this afternoon Anemia secondary to GIB: Hgb 10.6, previously 13.1 on 10/10/16 Repeat hemoglobin stable -Continue to monitor H&H closely, repeat CBC in a.m. 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 Currently at baseline. -Avoid nephrotoxic agent -IVF while NPO -Continue to monitor kidney function as indicated -continue on home dose of Gabapentin Anxiety: Pt w/ significant anxiety about being admitted, initially declined admit, no agreeable but "only for one night". -continue Xanax prn Hypertension: not on any antihypertensives. Hx of rash/hives on Lisinopril in the past. Patient denies any previous history of hypertension but stated in review of EMR -Clonidine as needed with parameters -Continue to monitor BP and adjust treatment accordingly DVT prophylaxis -Avoid chemoprophylaxis secondary to rectal bleed -bilateral SCD/DILSHAD hose Discharge Planning Not ready for discharge. Pending colonoscopy later today. Monitoring H&H. Problem Qualifiers (1) GI bleed: Qualified Codes: K92.2 - Gastrointestinal hemorrhage, unspecified Kaitlyn Mays Feb 24, 2018 11:51
[2018-02-24] MEDS ORDERED: PROPOFOL 200 MG/20 ML AMP IV ONE (12:00)
[2018-02-24] MEDS ORDERED: SODIUM CHLORID 0.9% 500 ML IV PRN (12:00)
[2018-02-24] MEDS ORDERED: LACTATED RINGER'S 1000 ML IV PRN (12:00)
[2018-02-24] MEDS ORDERED: CHLORHEXIDINE GLUCONATE 2 % 1 PACK (2 CLOTHS) TOPICAL PRN (12:00)
[2018-02-24] MEDS ORDERED: METOPROLOL TARTRATE 25 MG TAB PO PRN (12:00)
[2018-02-24] MEDS ORDERED: POVIDONE IODINE 5% (ANTISEPSIS KIT) 4 APPLICATIONS EACH NARE PRN (12:00)
[2018-02-24 12:51] LABS: HEMATOCRIT 33.1 % (39.0-51.0)
--- NOTE | 2018-02-24 16:30 | PD.PROCEDR ---
GI Procedure PROCEDURE PERFORMED Upper endoscopy with Diagnostic colonoscopy INDICATION FOR PROCEDURE GI bleed Anemia PROCEDURE: The procedure, risks and benefits were discussed with Mr. Curry and informed consent was obtained. Anesthesia sedated him with Diprivan. He was placed in the left lateral decubitus position. EGD: The Pentax videoscope was introduced through the oropharynx and advanced to the second portion of the duodenum under direct visualization. Retroflexion was performed in the stomach., Biopsy from the antrum and EG junction Colonoscopy: The Pentax videoscope was introduced through the rectum and advanced to cecum. Retroflexion was performed in the rectum. Colonic prep was good ESTIMATED BLOOD LOSS: None SPECIMENS REMOVED: GE junction Gastric ulcer in the antrum COMPLICATIONS: None IMPRESSION: Upper and esophagus, patient has ulceration at the EG junction with moderate size hiatal hernia biopsy from the EG junction Gastritis with small ulcer in the antrum biopsy was done Duodenum normal The colon showed significant diverticular disease throughout the colon Moderate internal hemorrhoids No sign of active bleeding at this time, is likely bleeding from diverticular disease or hemorrhoids that stopped with possible chronic anemia from the findings on the upper endoscopy from gastritis with small ulcer and esophagitis PLAN: Follow-up biopsy No NSAIDs Protonix 40 mg daily Monitor H&H if hemoglobin is stable patient can be discharged home in the morning Mayank Mathew MD Feb 24, 2018 16:30
[2018-02-24] MEDS ORDERED: DO NOT ADM ANY ANTICOAGULANT DRUGS PRN (16:45)
--- NOTE | 2018-02-24 20:43 | EKG ---
Date Performed: 02/24/2018 Time Performed: 08:23:05 PTAGE: 82 years EKG: Sinus rhythm WITH FREQUENT SUPRAVENTRICULAR PREMATURE COMPLEXES ABNORMAL RHYTHM ECG PREVIOUS TRACING : 02/24/2018 01.33 Since the previous tracing, no significant change noted DOCTOR: Florencio Bliss Interpretating Date/Time 02/24/2018 20:43:47
--- NOTE | 2018-02-24 20:59 | EKG ---
Date Performed: 02/24/2018 Time Performed: 01:33:44 PTAGE: 82 years EKG: Sinus rhythm WITH FREQUENT SUPRAVENTRICULAR PREMATURE COMPLEXES ABNORMAL RHYTHM ECG PREVIOUS TRACING : 04/15/2003 07.49 Since the previous tracing, no significant change noted DOCTOR: Florencio Bliss Interpretating Date/Time 02/24/2018 20:57:57
[2018-02-25 00:11] VITALS: BP 137/63; PULSE 74; RESP 16; TEMP 97.4; O2SAT 97
[2018-02-25 04:06] VITALS: BP 148/72; PULSE 75; RESP 15; TEMP 97.4; O2SAT 99
[2018-02-25] MEDS: PANTOPRAZOLE INJ 80 MG in SODIUM CHLORIDE 0.9% INJ 100 ML IV SCH (06:02)
[2018-02-25 07:23] LABS: AUTOMATED NEUTROPHIL # 4.3 TH/MM3 (1.8-7.7); BASOPHIL # 0.1 TH/MM3 (0-0.2); BASOPHIL % 0.8 % (0.0-2.0); EOSINOPHIL # 0.3 TH/MM3 (0-0.4); EOSINOPHIL % 4.1 % (0.0-4.0); HEMATOCRIT 32.5 % (39.0-51.0); HEMOGLOBIN 10.7 GM/DL (13.0-17.0); LYMPH % 23.6 % (9.0-44.0); LYMPHOCYTE # 1.6 TH/MM3 (1.0-4.8); MEAN CELL VOLUME 87.9 FL (80.0-100.0); MEAN CORPUSCULAR HEMOGLOBIN 28.9 PG (27.0-34.0); MEAN CORPUSCULAR HGB CONC 32.9 % (32.0-36.0); MEAN PLATELET VOLUME 8.2 FL (7.0-11.0); MONO % 7.8 % (0.0-8.0); MONOCYTE # 0.5 TH/MM3 (0-0.9); NEUT % 63.7 % (16.0-70.0); PLATELET COUNT 198 TH/MM3 (150-450); RED CELL DISTRIBUTION WIDTH 13.7 % (11.6-17.2); WHITE BLOOD COUNT 6.7 TH/MM3 (4.0-11.0)
[2018-02-25] MEDS ORDERED: PROT40TA PO (07:33)
--- NOTE | 2018-02-25 07:33 | HHI.DCPOC ---
Discharge Care Plan Diagnosis: (1) Gastritis (2) Internal hemorrhoids (3) Diverticular disease (4) GI bleed Goals to Promote Your Health * To prevent worsening of your condition and complications * To maintain your health at the optimal level Directions to Meet Your Goals Take your medications as prescribed Follow your dietary instruction Follow activity as directed Keep your appointments as scheduled Take your immunizations and boosters as scheduled If your symptoms worsen call your PCP, if no PCP go to Urgent Care Center or Emergency Room Smoking is Dangerous to Your Health. Avoid second hand smoke Call the 24-hour hour crisis hotline for domestic abuse at Betina Hooper PA-C February 25, 2018 7:33 am
[2018-02-25 07:44] VITALS: BP 128/66; PULSE 80; RESP 18; TEMP 98; O2SAT 97
[2018-02-25 07:49] LABS: ALKALINE PHOSPHATASE 64 U/L (45-117); ALT (GPT) 19 U/L (12-78); AST (GOT) 17 U/L (15-37); BICARBONATE 23.8 MEQ/L (21.0-32.0); BLOOD UREA NITROGEN 41 MG/DL (7-18); CALCIUM 8.6 MG/DL (8.5-10.1); CHLORIDE 113 MEQ/L (98-107); CREATININE 2.81 MG/DL (0.60-1.30); GLOMERULAR FILTRATION RATE 22 ML/MIN (>89); GLUCOSE,RANDOM 94 MG/DL (74-106); SODIUM (NA) 145 MEQ/L (136-145); TOTAL BILIRUBIN ADULT 0.3 MG/DL (0.2-1.0); TOTAL PROTEIN 6.2 GM/DL (6.4-8.2)
--- NOTE | 2018-02-25 08:22 | HHI.PR ---
Subjective Remarks Follow up for rectal bleeding. The patient reports no further episodes of rectal bleeding overnight. Denies any abdominal pain/nausea/vomiting. He tolerated oral intake for dinner last night. He wants to go home. Denies any other medical complaints including no headache, lightheadedness, dizziness, chest pain, palpitations, shortness of breath, or urinary complaints. Objective Vitals Vital Signs Date Time Temp Pulse Resp B/P (MAP) Pulse Ox O2 Delivery O2 Flow Rate FiO2 02/25/18 07:44 98.0 80 18 128/66 (86) 97 02/25/18 04:06 97.4 75 15 148/72 (97) 99 02/25/18 00:11 97.4 74 16 137/63 (87) 97 02/24/18 20:25 97.4 76 16 144/78 (100) 97 02/24/18 16:54 97.6 83 16 165/81 (109) 95 02/24/18 16:45 97.6 74 16 147/71 (96) 96 Room Air 02/24/18 16:30 73 16 135/72 (93) 100 Nasal Cannula 2 02/24/18 16:15 97.6 75 16 126/66 (86) 99 Nasal Cannula 2 02/24/18 11:26 97.6 88 16 152/76 (101) 99 I/O 02/24/18 02/24/18 02/24/18 02/25/18 02/25/18 02/25/18 07:00 15:00 23:00 07:00 15:00 23:00 Intake Total 640 ml 1000 ml Balance 640 ml 1000 ml Intake Oral 240 ml 1000 ml Other 400 ml # Voids 3 3 # Bowel Movements 5 Result Diagram: 02/25/1860402/25/18 0605 Imaging Last Impressions Abdomen/Pelvis CT 02/24/18 0332 Signed Impressions: Service Date/Time: Saturday, February 24, 2018 03:42 - CONCLUSION: 1. 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 2. Multiple nodular densities in both kidneys cannot be classified as simple cysts. Nonemergent ultrasound or pre-and post contrast MRI could be performed for further characterization. 3. Diverticular disease in the descending and sigmoid colon without diverticulitis. 4. Calcification of the aortic root with some dystrophic type calcification in the posterior parenchyma of the upper right hepatic lobe. 5. Linear atelectasis or scarring in the right lower lobe and left lingula Stan Vizcaino MD Chest X-Ray 02/24/18 0149 Signed Impressions: Service Date/Time: Saturday, February 24, 2018 01:53 - CONCLUSION: Bibasilar atelectasis/scarring. No confluent infiltrate. Stan Vizcaino MD Objective Remarks GENERAL: Well-nourished, well-developed pleasant elderly male patient in NAD. SKIN: Warm and dry. No rash. HEENT: Normocephalic. Atraumatic.Pupils equal and round. Mucous membranes pink and moist. CARDIOVASCULAR: Regular rate and rhythm. No murmur appreciated. RESPIRATORY: No accessory muscle use. Clear to auscultation. Breath sounds equal bilaterally. GASTROINTESTINAL: Abdomen soft, non-tender, nondistended. Normoactive bowel sounds x4. MUSCULOSKELETAL: No obvious deformities. Extremities without clubbing, cyanosis , or edema. NEUROLOGICAL: Awake and alert. No obvious cranial nerve deficits. Motor grossly within normal limits. Normal speech. PSYCHIATRIC: Appropriate mood and affect; insight and judgment normal. Procedures 02/24 - EGD/colonoscopy by Dr. Mathew: Upper and esophagus, patient has ulceration at the EG junction with moderate size hiatal hernia biopsy from the EG junction. Gastritis with small ulcer in the antrum biopsy was done. Duodenum normal. The colon showed significant diverticular disease throughout the colon. Moderate internal hemorrhoids. No sign of active bleeding at this time, is likely bleeding from diverticular disease or hemorrhoids that stopped with possible chronic anemia from the findings on the upper endoscopy from gastritis with small ulcer and esophagitis Recommendations: Follow-up biopsy. No NSAIDs. Protonix 40 mg daily. Monitor H&H if hemoglobin is stable patient can be discharged home in the morning. Medications and IVs Current Medications Medications (Trade) Dose Ordered Sig/Cuauhtemoc Route Start Time Stop Time Status Last Admin Sodium Chloride 1,000 ml @ 100 mls/hr Q10H IV 02/24/18 02:00 02/24/18 22:32 (NS Flush) 2 ml UNSCH PRN IV FLUSH 02/24/18 05:00 (NS Flush) 2 ml BID IV FLUSH 02/24/18 09:00 02/25/18 08:27 (Zofran Inj) 4 mg Q6H PRN IVP 02/24/18 05:00 (Tylenol) 650 mg Q6H PRN PO 02/24/18 05:00 ([place] 5-325 Mg) 1 tab Q4H PRN PO 02/24/18 05:00 ([place] 10-325 Mg) 1 tab Q4H PRN PO 02/24/18 05:00 (Suyapa-Colace) 1 tab BID PO 02/24/18 09:00 (Milk Of Magnesia Liq) 30 ml Q12H PRN PO 02/24/18 05:00 (Senokot) 17.2 mg Q12H PRN PO 02/24/18 05:00 (Dulcolax Supp) 10 mg DAILY PRN RECTAL 02/24/18 05:00 (Lactulose Liq) 30 ml DAILY PRN PO 02/24/18 05:00 (Neurontin) 300 mg BID PO 02/24/18 09:00 02/25/18 08:26 (Xanax) 0.25 mg Q8H PRN PO 02/24/18 05:00 (Catapres) 0.1 mg Q6H PRN PO 02/24/18 11:45 Lactated Ringer's 1,000 ml @ 30 mls/hr Q24H PRN IV 02/24/18 12:00 02/27/18 11:59 Sodium Chloride 500 ml @ 30 mls/hr [id number] PRN IV 02/24/18 12:00 02/27/18 11:59 (Lopressor) 25 mg NARRATIVE WRITER PRN PO 02/24/18 12:00 02/27/18 11:59 (Betadine 5% Antisepsis Kit) 1 applic NARRATIVE WRITER PRN EACH NARE 02/24/18 12:00 02/27/18 11:59 (Chlorhexidine 2% Cloth) 3 pack NARRATIVE WRITER PRN TOPICAL 02/24/18 12:00 02/27/18 11:[address] ([facility] Nursing Information) ALL NURSING DEPARTME... UNSCH PRN .XX 02/24/18 16:45 02/25/18 16:44 (Protonix) 40 mg DAILY PO 02/25/18 09:00 02/25/18 08:27 Urinary Catheter: No A/P Problem List: (1) GI bleed ICD Code: K92.2 - Gastrointestinal hemorrhage, unspecified (2) CKD (chronic kidney disease) stage 4, GFR 15-29 ml/min ICD Code: N18.4 - Chronic kidney disease, stage 4 (severe) (3) Anxiety ICD Code: F41.9 - Anxiety disorder, unspecified Assessment and Plan 82-year-old male with a PMH of Angiomyolipoma and CKD Stage IV who presented to the ER w/ complaints of rectal bleeding. GIB: c/o rectal bleed x3, 1 episode 2wks ago and 2 episodes tonight, no h/o GI Bleed in the past, not on ASA or anticoagulation. History of diverticulosis. -GI consulted, s/p EGD/colonoscopy 02/24 showed ulceration at EG junction, moderate size hiatal hernia, gastritis with small antral ulcer, duodenum normal ; colon with significant diverticular disease throughout colon, moderate internal hemorrhoids, no signs of active bleeding; likely source from diverticular disease or hemorrhoids that stopped. -Diet advanced to regular -S/p protonix drip, changed to protonix 40mg po daily -Cleared for discharge by GI with stable hemoglobin -no further bleeding, patient tolerating oral intake. Anemia secondary to GIB: Hgb 10.6, previously 13.1 on 10/10/16. -Repeat hemoglobin stable with trend Hgb 10.6 --> 10.6 --> 11.0 --> 10.7. -No further bleeding. 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 Currently at baseline. -Avoid nephrotoxic agent -Given IVF while NPO -Continue to monitor kidney function as indicated -continue on home dose of Gabapentin Anxiety: Pt w/ significant anxiety about being admitted, initially declined admit, no agreeable but "only for one night". -continue Xanax prn Hypertension: not on any antihypertensives. Hx of rash/hives on Lisinopril in the past. Patient denies any previous history of hypertension but stated in review of EMR -Clonidine as needed with parameters -Continue to monitor BP and adjust treatment accordingly -BP stable DVT prophylaxis -Avoid chemoprophylaxis secondary to rectal bleed -bilateral SCD/DILSHAD hose Discharge Planning Discharge patient to home Condition on discharge: Stable Regular Diet as tolerated Ad Allison activity Rx written: Protonix 40mg daily Follow-up with primary care physician and gastroenterology Dr. Mathew within 1 week Problem Qualifiers (1) GI bleed: Qualified Codes: K92.2 - Gastrointestinal hemorrhage, unspecified Betina Hooper PA-C February 25, 2018 8:22 am
[2018-02-25] MEDS: GABAPENTIN 300 MG CAP PO SCH (08:26)
[2018-02-25] MEDS: DOCUSATE SODIUM 50 MG/SENNA 8.6 MG TAB PO SCH (08:27)
[2018-02-25] MEDS: SODIUM CHLORIDE 0.9% FLUSH 10 ML FLUSH IV FLUSH SCH (08:27)
[2018-02-25] MEDS ORDERED: PANTOPRAZOLE SOD 40 MG DELAYED RELEASE TAB PO SCH (09:00)
--- NOTE | 2018-02-25 10:43 | HHI.GIFU ---
Subjective Remarks Pt sitting up in bed eating braekfast. eager to go home. No BM. No bleeding (Sana Cevallos) Objective Vitals I&O Vital Signs Date Time Temp Pulse Resp B/P (MAP) Pulse Ox O2 Delivery O2 Flow Rate FiO2 02/25/18 07:44 98.0 80 18 128/66 (86) 97 02/25/18 04:06 97.4 75 15 148/72 (97) 99 02/25/18 00:11 97.4 74 16 137/63 (87) 97 02/24/18 20:25 97.4 76 16 144/78 (100) 97 02/24/18 16:54 97.6 83 16 165/81 (109) 95 02/24/18 16:45 97.6 74 16 147/71 (96) 96 Room Air 02/24/18 16:30 73 16 135/72 (93) 100 Nasal Cannula 2 02/24/18 16:15 97.6 75 16 126/66 (86) 99 Nasal Cannula 2 02/24/18 11:26 97.6 88 16 152/76 (101) 99 I/O 02/24/18 02/24/18 02/24/18 02/25/18 02/25/18 02/25/18 07:00 15:00 23:00 07:00 15:00 23:00 Intake Total 640 ml 1000 ml Balance 640 ml 1000 ml Intake Oral 240 ml 1000 ml Other 400 ml # Voids 3 3 # Bowel Movements 5 Laboratory Laboratory Tests Test 02/24/18 12:35 02/25/18 06:05 Hemoglobin 11.0 10.7 Hematocrit 33.1 32.5 White Blood Count 6.7 Red Blood Count 3.70 Mean Corpuscular Volume 87.9 Mean Corpuscular Hemoglobin 28.9 Mean Corpuscular Hemoglobin Concent 32.9 Red Cell Distribution Width 13.7 Platelet Count 198 Mean Platelet Volume 8.2 Neutrophils (%) (Auto) 63.7 Lymphocytes (%) (Auto) 23.6 Monocytes (%) (Auto) 7.8 Eosinophils (%) (Auto) 4.1 Basophils (%) (Auto) 0.8 Neutrophils # (Auto) 4.3 Lymphocytes # (Auto) 1.6 Monocytes # (Auto) 0.5 Eosinophils # (Auto) 0.3 Basophils # (Auto) 0.1 CBC Comment DIFF FINAL Differential Comment Blood Urea Nitrogen 41 Creatinine 2.81 Random Glucose 94 Total Protein 6.2 Albumin 3.0 Calcium Level 8.6 Alkaline Phosphatase 64 Aspartate Amino Transf (AST/SGOT) 17 Alanine Aminotransferase (ALT/SGPT) 19 Total Bilirubin 0.3 Sodium Level 145 Potassium Level 4.3 Chloride Level 113 Carbon Dioxide Level 23.8 Anion Gap 8 Estimat Glomerular Filtration Rate 22 Imaging Last Impressions Abdomen/Pelvis CT 02/24/18 0332 Signed Impressions: Service Date/Time: Saturday, February 24, 2018 03:42 - CONCLUSION: 1. 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 2. Multiple nodular densities in both kidneys cannot be classified as simple cysts. Nonemergent ultrasound or pre-and post contrast MRI could be performed for further characterization. 3. Diverticular disease in the descending and sigmoid colon without diverticulitis. 4. Calcification of the aortic root with some dystrophic type calcification in the posterior parenchyma of the upper right hepatic lobe. 5. Linear atelectasis or scarring in the right lower lobe and left lingula Stan Vizcaino MD Chest X-Ray 02/24/18 0149 Signed Impressions: Service Date/Time: Saturday, February 24, 2018 01:53 - CONCLUSION: Bibasilar atelectasis/scarring. No confluent infiltrate. Stan Vizcaino MD Physical Exam HEENT: PERRL; normocephalic; atraumatic; no jaundice. CHEST: CTA CARDIAC: irr HR ABDOMEN: Soft, nondistended, nontender; no hepatosplenomegaly; bowel sounds are present in all four quadrants. EXTREMITIES: No clubbing, cyanosis, or edema. SKIN: Normal; no rash; no jaundice. ICE CREAM SERVER: No focal deficits; alert and oriented times three. (Sana Cevallos) Assessment and Plan Plan ASSESSMENT - rectal bleeding - episode rectal bleeding with BM last night and also episode 2 wks ago that did resolve last colonoscopy 5-6 y ago, polyp. NO other GI sx. CT showed diverticulosis. could be diverticular bleed - anemia - hgb 10.6 normocytic. 2/2 above PLAN - EGD and colonoscopy later today - goltungly prep -monitor HH - further recs to follow pt seen by myself and Dr Mathew and this note is on his behalf 02/25/18 s/p EGD and colonoscopy with fInding ulceration EG junction, moderate hiatal hernia, gastritis, small ulcer antrum; hemorrhoids, significant diverticular dz throughout colon, no active bleeding. bleeding likely 2/2 diverticulosis or hemorrhoids; chronic anemia from ulcer. HH relatively stable. tolerating diet. PLAN - await bx - avoid NSAIDs - daily protonix 40mg - ok to d/c home from GI standpoint - f/u with GI in the office pt seen by myself and Dr Mathew and this note is on his behalf (Sana Cevallos) Plan Patient was seen and examined, agree with above note, continue PPI, will follow- up biopsy as an outpatient and okay to discharge home from GI stand (Mayank Mathew MD) Sana Cevallos February 25, 2018 10:43 Mayank Mathew MD February 25, 2018 19:36
== END 2018-02-25 12:11 | disposition home or self-care (01) ==
LOC: NEPC 01:21 → NEDA 04:57 → NEPGCP 06:10
PROVIDERS: ADMIT Hospitalist; ATTEND Hospitalist
DX: K92.2 Gastrointestinal hemorrhage, unspecified (principal); K57.90 Diverticulosis of intestine, part unspecified, without perforation or abscess without bleeding; K29.70 Gastritis, unspecified, without bleeding; K20.9 Esophagitis, unspecified; K31.9 Disease of stomach and duodenum, unspecified; K64.8 Other hemorrhoids; I12.9 Hypertensive chronic kidney disease with stage 1 through stage 4 chronic kidney disease, or unspecified chronic kidney disease; N18.4 Chronic kidney disease, stage 4 (severe); G62.9 Polyneuropathy, unspecified; D17.71 Benign lipomatous neoplasm of kidney; D64.9 Anemia, unspecified; F41.9 Anxiety disorder, unspecified; Z85.828 Personal history of other malignant neoplasm of skin
CPT/HCPCS: 00813; 43239; 45378; 71045; 74176; 80053; 81001; 82550; 82607; 82728; 82746; 83036; 83540; 83550; 83690; 83735; 83880; 84484; 85014; 85018; 85025; 85610; 85730; 86850; 86900; 86901; 88305; 93005; 96361; 96365; 96366; 96376; 97163; 99285; C9113; G0378; G8987; G8988; J7030

== ENCOUNTER 2018-04-01 12:28 | Inpatient (IN) | payer MEDICARE ==
[2018-04-01] VITALS (10 sets, daily range): BP systolic 110–158; BP diastolic 55–76; PULSE 93–114; RESP 16–19; TEMP 99.5–100.9; O2SAT 93–98
[~2018-04-01] VITALS: Ht 170.2 cm; Wt 87.4 kg
[~2018-04-01 12:28] MED LIST changes: -DIAZ10TA PO; +PROT40TA PO
[2018-04-01] MEDS ORDERED: SODIUM CHLOR 0.9% 1000 ML INJ 1,000 ML IV ONE (13:44)
[2018-04-01] MEDS ORDERED: SODIUM CHLORIDE 0.9% FLUSH 10 ML FLUSH IVF PRN (13:45)
--- NOTE | 2018-04-01 13:47 | PD ---
HPI Chief Complaint: Fall Time Seen by Provider: 13:33 Travel History International Travel<30 days: No Contact w/Intl Traveler<30days: No Traveled to known affect area: No History of Present Illness HPI 82-year-old male presents emergency department following a syncopal episode. Patient has history of neuropathy and hypertension. States that he was at the bank when he "went down." He does not recall the fall. He did strike his face. He states when he was assisted back up, his gait was off balance. He felt like he was going to pass out again and the room was spinning. He reports of being unable to walk with a steady gait since the fall. This is new today. Patient denies any chest pain or tightness. He has had no difficulty breathing. He reports no recent illnesses, fever, or chills. He reports moderate facial pain, constant. He denies any nausea or vomiting. He denies any other focal deficits weakness. He has no other symptoms to report. 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) Diminished Hearing: No Endocrine: No Gastrointestinal Disorders: Yes (DIVERTCULOSIS) Genitourinary: No Hypertension: Yes Immune Disorder: No Neurologic: Yes (neuropathy) Psychiatric: No Reproductive: No Respiratory: No Immunizations Current: Yes Renal Failure: Yes (40%) Past Surgical History AICD: No Eye Surgery: Yes (RIGHT PHACO CATARACT REMOVAL) Joint Replacement: No Pacemaker: No Social History Alcohol Use: Yes (occ) Tobacco Use: No Substance Use: No Allergies-Medications (Allergen,Severity, Reaction): Coded Allergies: No Known Allergies (Unverified Allergy, Unknown, 04/01/18) Reported Meds & Prescriptions Reported Meds & Active Scripts Active Reported Gabapentin 300 Mg Cap 300 Mg PO BID Review of Systems Except as stated in HPI: all other systems reviewed are Neg Physical Exam Narrative GENERAL: Well-nourished elderly male patient, in no acute distress. SKIN: Focused skin assessment warm/dry. HEAD: Contusion and mild edema above the left eyebrow.. Normocephalic. EYES: Pupils equal and round. React to light. No scleral icterus. No injection or drainage. ENT: No nasal bleeding or discharge. Mucous membranes pink and moist. NECK: Trachea midline. No JVD. No cervical spine tenderness. CARDIOVASCULAR: Regular rate and rhythm. RESPIRATORY: No accessory muscle use. Clear to auscultation. Breath sounds equal bilaterally. GASTROINTESTINAL: Abdomen soft, non-tender, nondistended. Hepatic and splenic margins not palpable. MUSCULOSKELETAL: No obvious deformities. No clubbing. No cyanosis. No edema. 5+ strength equal bilateral extremities. NEUROLOGICAL: Awake and alert. No obvious cranial nerve deficits. Motor grossly within normal limits. Normal speech. PSYCHIATRIC: Appropriate mood and affect; insight and judgment normal. Data Data Last Documented VS Vital Signs Date Time Temp Pulse Resp B/P (MAP) Pulse Ox O2 Delivery O2 Flow Rate FiO2 04/01/18 15:50 103 18 129/61 (83) 97 Room Air 04/01/18 12:34 99.5 Orders Orders Electrocardiogram (04/01/18 ) Complete Blood Count With Diff (04/01/18 12:37) Basic Metabolic Panel (Bmp) (04/01/18 12:37) Urinalysis - C+S If Indicated (04/01/18 12:37) Coag Profile (04/01/18 13:39) Ct Brain W/O Iv Contrast(Rout) (04/01/18 ) Magnesium (Mg) (04/01/18 13:44) Ckmb (Isoenzyme) Profile (04/01/18 13:44) Troponin I (04/01/18 13:44) Chest, Single Ap (04/01/18 13:44) Ct Cerv Spine W/O Contrast (04/01/18 13:44) Ecg Monitoring (04/01/18 13:44) Iv Access Insert/Monitor (04/01/18 13:44) Oximetry (04/01/18 13:44) Sodium Chloride 0.9% Flush (Ns Flush) (04/01/18 13:45) Sodium Chlor 0.9% 1000 Ml Inj (Ns 1000 M (04/01/18 13:44) Orthostatic Vital Signs (04/01/18 13:44) Apply Cervical Collar (04/01/18 13:55) Urine Culture (04/01/18 14:35) Ceftriaxone Inj (Rocephin Inj) (04/01/18 15:30) Lactic Acid Sepsis Protocol (04/01/18 15:37) Blood Culture (04/01/18 15:37) Remove Cervical Collar (04/01/18 16:07) Admit Order (Ed Use Only) (04/01/18 16:13) Labs Laboratory Tests Test 04/01/18 13:54 04/01/18 14:35 04/01/18 15:40 White Blood Count 15.3 TH/MM3 Red Blood Count 3.92 MIL/MM3 Hemoglobin 11.1 GM/DL Hematocrit 33.9 % Mean Corpuscular Volume 86.5 FL Mean Corpuscular Hemoglobin 28.3 PG Mean Corpuscular Hemoglobin Concent 32.7 % Red Cell Distribution Width 13.8 % Platelet Count 214 TH/MM3 Mean Platelet Volume 7.2 FL Neutrophils (%) (Auto) 89.1 % Lymphocytes (%) (Auto) 3.9 % Monocytes (%) (Auto) 6.6 % Eosinophils (%) (Auto) 0.0 % Basophils (%) (Auto) 0.4 % Neutrophils # (Auto) 13.6 TH/MM3 Lymphocytes # (Auto) 0.6 TH/MM3 Monocytes # (Auto) 1.0 TH/MM3 Eosinophils # (Auto) 0.0 TH/MM3 Basophils # (Auto) 0.1 TH/MM3 CBC Comment DIFF FINAL Differential Comment Prothrombin Time 10.3 SEC Prothromb Time International Ratio 1.0 RATIO Activated Partial Thromboplast Time 24.5 SEC Blood Urea Nitrogen 49 MG/DL Creatinine 2.93 MG/DL Random Glucose 121 MG/DL Calcium Level 9.2 MG/DL Sodium Level 138 MEQ/L Potassium Level 4.8 MEQ/L Chloride Level 108 MEQ/L Carbon Dioxide Level 22.2 MEQ/L Anion Gap 8 MEQ/L Estimat Glomerular Filtration Rate 21 ML/MIN Urine Color YELLOW Urine Turbidity CLEAR Urine pH 5.0 Urine Specific [place] 1.015 Urine Protein TRACE mg/dL Urine Glucose (UA) NEG mg/dL Urine Ketones NEG mg/dL Urine Occult Blood TRACE Urine Nitrite POS Urine Bilirubin NEG Urine Urobilinogen LESS THAN 2.0 MG/DL Urine Leukocyte Esterase SMALL Urine RBC 1 /hpf Urine WBC 8 /hpf Urine Squamous Epithelial Cells <1 /hpf Urine Bacteria MOD /hpf Urine Mucus FEW /lpf Microscopic Urinalysis Comment CULTURE INDICATED MDM Medical Decision Making Medical Screen Exam Complete: Yes Emergency Medical Condition: Yes Medical Record Reviewed: Yes Differential Diagnosis Syncope versus near syncope versus electrolyte abnormality versus intracranial etiology versus arrhythmia Narrative Course 82-year-old male presents emergency department following a syncopal episode. Patient appears without distress. Neuro exam is nonfocal. At this time he is unwilling to ambulate due to sensation of passing out. He does have contusion above the left eyebrow. Laboratory Tests Test 04/01/18 13:54 04/01/18 14:35 04/01/18 15:40 White Blood Count 15.3 TH/MM3 Red Blood Count 3.92 MIL/MM3 Hemoglobin 11.1 GM/DL Hematocrit 33.9 % Mean Corpuscular Volume 86.5 FL Mean Corpuscular Hemoglobin 28.3 PG Mean Corpuscular Hemoglobin Concent 32.7 % Red Cell Distribution Width 13.8 % Platelet Count 214 TH/MM3 Mean Platelet Volume 7.2 FL Neutrophils (%) (Auto) 89.1 % Lymphocytes (%) (Auto) 3.9 % Monocytes (%) (Auto) 6.6 % Eosinophils (%) (Auto) 0.0 % Basophils (%) (Auto) 0.4 % Neutrophils # (Auto) 13.6 TH/MM3 Lymphocytes # (Auto) 0.6 TH/MM3 Monocytes # (Auto) 1.0 TH/MM3 Eosinophils # (Auto) 0.0 TH/MM3 Basophils # (Auto) 0.1 TH/MM3 CBC Comment DIFF FINAL Differential Comment Prothrombin Time 10.3 SEC Prothromb Time International Ratio 1.0 RATIO Activated Partial Thromboplast Time 24.5 SEC Blood Urea Nitrogen 49 MG/DL Creatinine 2.93 MG/DL Random Glucose 121 MG/DL Calcium Level 9.2 MG/DL Sodium Level 138 MEQ/L Potassium Level 4.8 MEQ/L Chloride Level 108 MEQ/L Carbon Dioxide Level 22.2 MEQ/L Anion Gap 8 MEQ/L Estimat Glomerular Filtration Rate 21 ML/MIN Urine Color YELLOW Urine Turbidity CLEAR Urine pH 5.0 Urine Specific [place] 1.015 Urine Protein TRACE mg/dL Urine Glucose (UA) NEG mg/dL Urine Ketones NEG mg/dL Urine Occult Blood TRACE Urine Nitrite POS Urine Bilirubin NEG Urine Urobilinogen LESS THAN 2.0 MG/DL Urine Leukocyte Esterase SMALL Urine RBC 1 /hpf Urine WBC 8 /hpf Urine Squamous Epithelial Cells <1 /hpf Urine Bacteria MOD /hpf Urine Mucus FEW /lpf Microscopic Urinalysis Comment CULTURE INDICATED Last Impressions Chest X-Ray 04/01/18 1344 Signed Impressions: CONCLUSION: No acute cardiopulmonary abnormality is identified. Cervical Spine CT 04/01/18 1344 Signed Impressions: CONCLUSION: 1. 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 No evidence of any acute f racture Head CT 04/01/18 0000 Signed Impressions: CONCLUSION: 1. Negative CT Head non contrast. Results have been reviewed. Troponin, CK-MB, and magnesium are still pending. Patient is given IV Rocephin for UTI. Patient does meet sepsis criteria. Call has been placed to [facility] for admission. I discussed the patient with my attending physician is also reviewed the results and assessed the patient. Patient will be admitted at this time. Diagnosis Primary Impression: Sepsis Qualified Codes: A41.9 - Sepsis, unspecified organism Additional Impressions: UTI (urinary tract infection) Qualified Codes: N39.0 - Urinary tract infection, site not specified Syncope Qualified Codes: R55 - Syncope and collapse CKD (chronic kidney disease) stage 4, GFR 15-29 ml/min Admitting Information Admitting Physician Requests: Admit Condition: Stable Sade Puckett Apr 01, 2018 13:47
[2018-04-01 14:08] LABS: AUTOMATED NEUTROPHIL # 13.6 TH/MM3 (1.8-7.7); BASOPHIL # 0.1 TH/MM3 (0-0.2); BASOPHIL % 0.4 % (0.0-2.0); HEMATOCRIT 33.9 % (39.0-51.0); HEMOGLOBIN 11.1 GM/DL (13.0-17.0); LYMPH % 3.9 % (9.0-44.0); LYMPHOCYTE # 0.6 TH/MM3 (1.0-4.8); MEAN CELL VOLUME 86.5 FL (80.0-100.0); MEAN CORPUSCULAR HEMOGLOBIN 28.3 PG (27.0-34.0); MEAN CORPUSCULAR HGB CONC 32.7 % (32.0-36.0); MEAN PLATELET VOLUME 7.2 FL (7.0-11.0); MONO % 6.6 % (0.0-8.0); NEUT % 89.1 % (16.0-70.0); PLATELET COUNT 214 TH/MM3 (150-450); RED BLOOD COUNT 3.92 MIL/MM3 (4.50-5.90); RED CELL DISTRIBUTION WIDTH 13.8 % (11.6-17.2); WHITE BLOOD COUNT 15.3 TH/MM3 (4.0-11.0)
[2018-04-01 14:17] LABS: PROTHROMBIN TIME - PATIENT 10.3 SEC (9.8-11.6)
[2018-04-01 14:28] LABS: BICARBONATE 22.2 MEQ/L (21.0-32.0); CALCIUM 9.2 MG/DL (8.5-10.1); CREATININE 2.93 MG/DL (0.60-1.30)
--- NOTE | 2018-04-01 14:48 | RADRPT ---
EXAM DATE: 04/01/2018 2:30 PM EDT AGE/SEX: 82 years / Male INDICATIONS: Short of breath. CLINICAL DATA: This is the patient's initial encounter. Patient reports that signs and symptoms have been present for 1 day and indicates a pain score of 0/10. MEDICAL/SURGICAL HISTORY: None. None. COMPARISON: [facility], CHEST SINGLE AP, 02/24/2018. . FINDINGS: Portable AP view of the chest demonstrates a normal size cardiac silhouette. EKG lines overlie the pa tient. No effusion, consolidation, or pneumothorax is identified. The bones and soft tissues demonstr ate no acute finding. CONCLUSION: No acute cardiopulmonary abnormality is identified. Electronically signed by: Wu Chambers MD 04/01/2018 2:47 PM EDT
[2018-04-01 14:59] LABS: BACTERIA, URINE MOD /hpf; BILIRUBIN, URINE NEG (NEG); BLOOD, URINE TRACE (NEG); GLUCOSE,URINE NEG (NEG); KETONE, URINE NEG (NEG); MUCUS URINE FEW /lpf (OCC); NITRITE,URINE POS (NEG); SQUAMOUS EPITHELIAL CELL URINE <1 /hpf (0-5); URINE COLOR YELLOW (YELLW/STRAW); URINE LEUKOCYTE ESTERASE SMALL (NEG)
[2018-04-01] MEDS ORDERED: cefTRIAXone INJ 1,000 MG in SODIUM CHLORIDE 0.9% INJ 100 ML IV ONE (15:30)
--- NOTE | 2018-04-01 15:33 | RADRPT ---
EXAM DATE: 04/01/2018 3:18 PM EDT AGE/SEX: 82 years / Male INDICATIONS: Patient fell and hit head today. CLINICAL DATA: This is the patient's initial encounter. Patient reports that signs and symptoms have been present for 1 day and indicates a pain score of 0/10. MEDICAL/SURGICAL HISTORY: Hypertension. Cardiovascular disease. Renal disease. None. RADIATION DOSE: 36.29 CTDI (mGy) COMPARISON: No prior [facility] exams available for comparison. TECHNIQUE: CT of the head without contrast. Using automated exposure control and adjustment of the mA and/or kV according to patient size, radiation dose was kept as low as reasonably achievable to ob tain optimal diagnostic quality images. FINDINGS: Cerebrum: The ventricles are normal for age. No evidence of midline shift, mass lesion, hemorrhage or acute infarction. No extraaxial fluid collections are seen. Posterior Fossa: The cerebellum and brainstem are intact. The 4th ventricle is midline. The cerebe llopontine angle is unremarkable. Extracranial: The visualized portion of the orbits is intact. Skull: The calvaria is intact. No evidence of skull fracture. CONCLUSION: 1. Negative CT Head non contrast. Electronically signed by: Michael Harris MD 04/01/2018 3:32 PM EDT
--- NOTE | 2018-04-01 15:42 | RADRPT ---
EXAM DATE: 04/01/2018 3:23 PM EDT AGE/SEX: 82 years / Male INDICATIONS: Patient fell hitting head today. CLINICAL DATA: This is the patient's initial encounter. Patient reports that signs and symptoms have been present for 1 day and indicates a pain score of 3/10. MEDICAL/SURGICAL HISTORY: Cardiovascular disease. Hypertension. None. RADIATION DOSE: 18.27 CTDI (mGy) COMPARISON: No prior [place] exams available for comparison. TECHNIQUE: Contiguous axial images were obtained using helical multirow detector technique. The vol umetric data was post-processed with multiplanar reconstruction in oblique axial, sagittal, and coron al planes. Using automated exposure control and adjustment of the mA and/or kV according to patient s ize, radiation dose was kept as low as reasonably achievable to obtain optimal diagnostic quality ramon ges. FINDINGS: Vertebrae: Normal vertebral body height. Retrolisthesis of C3 on C4 with moderate intervertebral dis c space narrowing. Moderate intervertebral spacer from C5 to T1 Alignment: Normal. No subluxation. C2-3: The bony spinal canal is normal in size. No evidence of disc bulge or herniation. The neural foramina are bilaterally patent. C3-4: The bony spinal canal is normal in size. No evidence of disc bulge or herniation. The neural foramina are bilaterally patent. C4-5: The bony spinal canal is normal in size. No evidence of disc bulge or herniation. The neural foramina are bilaterally patent. C5-6: The bony spinal canal is normal in size. No evidence of disc bulge or herniation. The neural foramina are bilaterally patent. C6-7: The bony spinal canal is normal in size. No evidence of disc bulge or herniation. The neural foramina are bilaterally patent. C7-T1: The bony spinal canal is normal in size. No evidence of disc bulge or herniation. The neura l foramina are bilaterally patent. CONCLUSION: 1. 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 No evidence of any acute fracture Electronically signed by: Michael Harris MD 04/01/2018 3:41 PM EDT
--- NOTE | 2018-04-01 16:20 | PD ---
Physical Exam Date Seen by Provider: Apr 01, 2018 Data Data Last Documented VS Vital Signs Date Time Temp Pulse Resp B/P (MAP) Pulse Ox O2 Delivery O2 Flow Rate FiO2 04/01/18 15:50 103 18 129/61 (83) 97 Room Air 04/01/18 12:34 99.5 Orders Orders Electrocardiogram (04/01/18 ) Complete Blood Count With Diff (04/01/18 12:37) Basic Metabolic Panel (Bmp) (04/01/18 12:37) Urinalysis - C+S If Indicated (04/01/18 12:37) Coag Profile (04/01/18 13:39) Ct Brain W/O Iv Contrast(Rout) (04/01/18 ) Magnesium (Mg) (04/01/18 13:44) Ckmb (Isoenzyme) Profile (04/01/18 13:44) Troponin I (04/01/18 13:44) Chest, Single Ap (04/01/18 13:44) Ct Cerv Spine W/O Contrast (04/01/18 13:44) Ecg Monitoring (04/01/18 13:44) Iv Access Insert/Monitor (04/01/18 13:44) Oximetry (04/01/18 13:44) Sodium Chloride 0.9% Flush (Ns Flush) (04/01/18 13:45) Sodium Chlor 0.9% 1000 Ml Inj (Ns 1000 M (04/01/18 13:44) Orthostatic Vital Signs (04/01/18 13:44) Apply Cervical Collar (04/01/18 13:55) Urine Culture (04/01/18 14:35) Ceftriaxone Inj (Rocephin Inj) (04/01/18 15:30) Lactic Acid Sepsis Protocol (04/01/18 15:37) Blood Culture (04/01/18 15:37) Remove Cervical Collar (04/01/18 16:07) Admit Order (Ed Use Only) (04/01/18 16:13) Labs Laboratory Tests Test 04/01/18 13:54 04/01/18 14:35 04/01/18 15:40 White Blood Count 15.3 TH/MM3 Red Blood Count 3.92 MIL/MM3 Hemoglobin 11.1 GM/DL Hematocrit 33.9 % Mean Corpuscular Volume 86.5 FL Mean Corpuscular Hemoglobin 28.3 PG Mean Corpuscular Hemoglobin Concent 32.7 % Red Cell Distribution Width 13.8 % Platelet Count 214 TH/MM3 Mean Platelet Volume 7.2 FL Neutrophils (%) (Auto) 89.1 % Lymphocytes (%) (Auto) 3.9 % Monocytes (%) (Auto) 6.6 % Eosinophils (%) (Auto) 0.0 % Basophils (%) (Auto) 0.4 % Neutrophils # (Auto) 13.6 TH/MM3 Lymphocytes # (Auto) 0.6 TH/MM3 Monocytes # (Auto) 1.0 TH/MM3 Eosinophils # (Auto) 0.0 TH/MM3 Basophils # (Auto) 0.1 TH/MM3 CBC Comment DIFF FINAL Differential Comment Prothrombin Time 10.3 SEC Prothromb Time International Ratio 1.0 RATIO Activated Partial Thromboplast Time 24.5 SEC Blood Urea Nitrogen 49 MG/DL Creatinine 2.93 MG/DL Random Glucose 121 MG/DL Calcium Level 9.2 MG/DL Sodium Level 138 MEQ/L Potassium Level 4.8 MEQ/L Chloride Level 108 MEQ/L Carbon Dioxide Level 22.2 MEQ/L Anion Gap 8 MEQ/L Estimat Glomerular Filtration Rate 21 ML/MIN Urine Color YELLOW Urine Turbidity CLEAR Urine pH 5.0 Urine Specific [place] 1.015 Urine Protein TRACE mg/dL Urine Glucose (UA) NEG mg/dL Urine Ketones NEG mg/dL Urine Occult Blood TRACE Urine Nitrite POS Urine Bilirubin NEG Urine Urobilinogen LESS THAN 2.0 MG/DL Urine Leukocyte Esterase SMALL Urine RBC 1 /hpf Urine WBC 8 /hpf Urine Squamous Epithelial Cells <1 /hpf Urine Bacteria MOD /hpf Urine Mucus FEW /lpf Microscopic Urinalysis Comment CULTURE INDICATED MDM Medical Record Reviewed: Yes Supervised Visit with JETT: Yes Narrative Course I, Dr. Castro, have reviewed the advance practice practitioner's documentation and am in agreement, met with the patient face to face, made the diagnosis, and the medical decision making was done by me. *My assessment and Findings: Syncope - patient is a 82 year old male who presents to ER after he suffered a [place]. Patient reports only history neuropathy as well as a "bad knee." As per patient's family, patient was confused after a syncopal episode, patient with no complaints at this time. Patient denies any chest pain or shortness of breath, no headache or dizziness, no abdominal pain, nausea vomiting. Lab work was reviewed,CBC & BMP Diagram 04/01/18 13:54 Calcium Level 9.2 Patient with a white blood cell count 15.3, BUN 49, creatinine 2.93 which is at baseline. UA is positive for positive nitrites, 8 white blood cells, moderate bacteria, small leuk esterase, urine culture was obtained. Patient was given dose of IV Rocephin for treatment of UTI. Last Impressions Chest X-Ray 04/01/18 1344 Signed Impressions: CONCLUSION: No acute cardiopulmonary abnormality is identified. Cervical Spine CT 04/01/18 1344 Signed Impressions: CONCLUSION: 1. 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 No evidence of any acute f racture Head CT 04/01/18 0000 Signed Impressions: CONCLUSION: 1. Negative CT Head non contrast. CT the head negative for any acute bleed, patient understands need for admission for syncope workup. Diagnosis Primary Impression: Syncope and collapse Additional Impression: UTI (urinary tract infection) Admitting Information Admitting Physician Requests: Observation Clarissa Castro DO Apr 01, 2018 16:20
[2018-04-01 16:45] LABS: MAGNESIUM 2.5 MG/DL (1.5-2.5)
[2018-04-01 16:48] LABS: TROPONIN I LESS THAN 0.02 NG/ML (0.02-0.05)
[2018-04-01] MEDS ORDERED: SODIUM CHLOR 0.9% 1000 ML INJ 1,000 ML IV SCH (17:14)
[2018-04-01] MEDS ORDERED: SODIUM CHLORIDE 0.9% FLUSH 10 ML FLUSH IV FLUSH PRN (17:15)
[2018-04-01] MEDS ORDERED: NALOXONE HCL 0.4 MG/ML AMP IV PUSH PRN (17:15)
[2018-04-01] MEDS: DOCUSATE SODIUM 50 MG/SENNA 8.6 MG TAB PO SCH (21:00)
--- NOTE | 2018-04-01 21:11 | HHI.HP ---
[facility] Physician Alvino Black M.D. Admission Diagnosis Sepsis; UTI; syncopal episode Diagnoses: Travel History International Travel<30 Days: No Contact w/Intl Traveler <30 Da: No Traveled to Known Affected Are: No History of Present Illness 82-year-old male with a past medical history significant for neuropathy and chronic kidney disease presents the emergency department for evaluation of a syncopal episode. The patient reports that he has been having difficulty walking for several weeks secondary to knee pain and has been getting injections in his knees. He states that he was at the post office earlier today when he fell. He is unsure whether he lost consciousness or not. He hit his forehead and sustained a small laceration that did not require repair. The patient reports he had urinary incontinence with the episode although states he has been having increasing urinary frequency and incontinence over the past several weeks. No seizure-like activity was observed. He denies any fever/ chills. No chest pain or shortness of breath. No abdominal pain. No nausea/ vomiting/diarrhea. No lateralizing signs/symptoms. Review of Systems Except as stated in HPI: all other systems reviewed are Neg Past Family Social History Past Medical History Neuropathy Chronic kidney disease Past Surgical History None Reported Medications Reported Meds & Active Scripts Active Reported Gabapentin 300 Mg Cap 300 Mg PO BID Allergies: Coded Allergies: No Known Allergies (Unverified Allergy, Unknown, 04/01/18) Family History Negative for CAD/DM Social History Negative for alcohol, tobacco and illicit drugs Physical Exam Vital Signs Vital Signs Date Time Temp Pulse Resp B/P (MAP) Pulse Ox O2 Delivery O2 Flow Rate FiO2 04/01/18 19:31 04/01/18 18:08 100.0 114 19 158/74 (102) 97 Room Air 04/01/18 17:40 103 18 125/69 (87) 98 Room Air 04/01/18 15:50 103 18 129/61 (83) 97 Room Air 04/01/18 14:00 97 18 140/64 (89) 105 19 139/67 (91) 110 19 128/63 (84) 04/01/18 13:51 95 18 96 Room Air 04/01/18 13:48 95 18 150/76 (100) 96 Room Air 04/01/18 13:47 95 18 150/76 (100) 96 Room Air 04/01/18 12:34 99.5 110 18 145/72 (96) 94 Physical Exam GENERAL: male sitting up in bed SKIN: No rashes, ecchymoses or lesions. Cool and dry. HEAD: Normocephalic. No temporal or scalp tenderness. 2 cm laceration above left eyebrow. EYES: Pupils equal round and reactive. Extraocular motions intact. No scleral icterus. No injection or drainage. ENT: Nose without bleeding, purulent drainage or septal hematoma. Throat without erythema, tonsillar hypertrophy or exudate. Uvula midline. Airway patent. NECK: Trachea midline. No JVD or lymphadenopathy. Supple, nontender, no meningeal signs. CARDIOVASCULAR: Regular rate and rhythm without murmurs, gallops, or rubs. RESPIRATORY: Clear to auscultation. Breath sounds equal bilaterally. No wheezes , rales, or rhonchi. GASTROINTESTINAL: Abdomen soft, non-tender, nondistended. No hepato-splenomegaly , or palpable masses. No guarding. MUSCULOSKELETAL: Extremities without clubbing, cyanosis, or edema. No joint tenderness, effusion, or edema noted. No calf tenderness. NEUROLOGICAL: Awake and alert. Cranial nerves II through XII intact. Motor and sensory grossly within normal limits. Normal speech. Laboratory Laboratory Tests Test 04/01/18 13:54 04/01/18 14:35 04/01/18 15:40 04/01/18 17:35 White Blood Count 15.3 Red Blood Count 3.92 Hemoglobin 11.1 Hematocrit 33.9 Mean Corpuscular Volume 86.5 Mean Corpuscular Hemoglobin 28.3 Mean Corpuscular Hemoglobin Concent 32.7 Red Cell Distribution Width 13.8 Platelet Count 214 Mean Platelet Volume 7.2 Neutrophils (%) (Auto) 89.1 Lymphocytes (%) (Auto) 3.9 Monocytes (%) (Auto) 6.6 Eosinophils (%) (Auto) 0.0 Basophils (%) (Auto) 0.4 Neutrophils # (Auto) 13.6 Lymphocytes # (Auto) 0.6 Monocytes # (Auto) 1.0 Eosinophils # (Auto) 0.0 Basophils # (Auto) 0.1 CBC Comment DIFF FINAL Differential Comment Prothrombin Time 10.3 Prothromb Time International Ratio 1.0 Activated Partial Thromboplast Time 24.5 Blood Urea Nitrogen 49 Creatinine 2.93 Random Glucose 121 Calcium Level 9.2 Sodium Level 138 Potassium Level 4.8 Chloride Level 108 Carbon Dioxide Level 22.2 Anion Gap 8 Estimat Glomerular Filtration Rate 21 Magnesium Level 2.5 Total Creatine Kinase 92 Troponin I LESS THAN 0.02 0.02 Urine Color YELLOW Urine Turbidity CLEAR Urine pH 5.0 Urine Specific [place] 1.015 Urine Protein TRACE Urine Glucose (UA) NEG Urine Ketones NEG Urine Occult Blood TRACE Urine Nitrite POS Urine Bilirubin NEG Urine Urobilinogen LESS THAN 2.0 Urine Leukocyte Esterase SMALL Urine RBC 1 Urine WBC 8 Urine Squamous Epithelial Cells <1 Urine Bacteria MOD Urine Mucus FEW Microscopic Urinalysis Comment CULTURE INDICATED Lactic Acid Level 1.0 Date/Time Source Procedure Growth Status 04/01/18 15:45 Blood Peripheral Aerobic Blood Culture Pending Received 04/01/18 15:45 Blood Peripheral Anaerobic Blood Culture Pending Received 04/01/18 14:35 Urine Clean Catch Urine Culture Pending Received Result Diagram: 04/01/18 1354 04/01/18 1354 Caprini VTE Risk Assessment Caprini VTE Risk Assessment: Mod/High Risk (score >= 2) Caprini Risk Assessment Model Point Value = 1 Point Value = 2 Point Value = 3 Point Value = 5 Age 41-60 Minor surgery BMI > 25 kg/m2 Swollen legs Varicose veins or History of unexplained or recurrent spontaneous Oral contraceptives or hormone replacement Sepsis (< 1 month) Serious lung disease, including pneumonia (< 1 month) Abnormal pulmonary function Acute myocardial infarction Congestive heart failure (< 1 month) History of inflammatory bowel disease Medical patient at bed rest Age 61-74 Arthroscopic surgery Major open surgery (> 45 min) Laparoscopic surgery (> 45 min) Malignancy Confined to bed (> 72 hours) Immobilizing plaster cast Central venous access Age >= 75 History of VTE Family history of VTE Factor V Leiden Prothrombin [id number] Lupus anticoagulant Anticardiolipin antibodies Elevated serum homocysteine Heparin-induced thrombocytopenia Other congenital or acquired thrombophilia Stroke (< 1 month) Elective arthroplasty Hip, pelvis, or leg fracture Acute spinal cord injury (< 1 month) Prophylaxis Regimen Total Risk Factor Score Risk Level Prophylaxis Regimen 0-1 Low Early ambulation 2 Moderate Order ONE of the following: *Sequential Compression Device (SCD) *Heparin 5000 units SQ BID 3-4 Higher Order ONE of the following medications: *Heparin 5000 units SQ TID *Enoxaparin/Lovenox 40 mg SQ daily (WT < 150 kg, CrCl > 30 mL/min) *Enoxaparin/Lovenox 30 mg SQ daily (WT < 150 kg, CrCl > 10-29 mL/min) *Enoxaparin/Lovenox 30 mg SQ BID (WT < 150 kg, CrCl > 30 mL/min) AND/OR *Sequential Compression Device (SCD) 5 or more Highest Order ONE of the following medications: *Heparin 5000 units SQ TID (Preferred with Epidurals) *Enoxaparin/Lovenox 40 mg SQ daily (WT < 150 kg, CrCl > 30 mL/min) *Enoxaparin/Lovenox 30 mg SQ daily (WT < 150 kg, CrCl > 10-29 mL/min) *Enoxaparin/Lovenox 30 mg SQ BID (WT < 150 kg, CrCl > 30 mL/min) AND *Sequential Compression Device (SCD) Assessment and Plan Assessment and Plan Assessment/plan: 1. Syncope Head CT negative for acute process CT of the cervical spine showed chronic degenerative disease without evidence of acute fracture Unclear etiology, may be infectious in nature Carotid ultrasound, echo pending 2. UTI/dysuria UA consistent with urinary tract infection Urine culture pending Rocephin 3. Chronic kidney disease Creatinine 2.93, baseline 2.8 Monitor renal function 4. Neuropathy Continue home gabapentin as renal function is baseline FEN Renal diet Electrolytes: Monitor and replete as needed Heparin NS at 100 cc/hour Physician Certification 2 Midnight Certification Type: Admission for Inpatient Services Order for Inpatient Services The services are ordered in accordance with Medicare regulations or non- Medicare payer requirements, as applicable. In the case of services not specified as inpatient-only, they are appropriately provided as inpatient services in accordance with the 2-midnight benchmark. Estimated LOS (days): 2 2 days is the estimated time the patient will need to remain in the hospital, assuming treatment plan goals are met and no additional complications. Post-Hospital Plan: Not yet determined Clarissa Haro MD Apr 01, 2018 21:11
[2018-04-01] MEDS: SODIUM CHLORIDE 0.9% FLUSH 10 ML FLUSH IV FLUSH SCH (21:45)
[2018-04-01] MEDS: HEPARIN SODIUM - SQ 10,000 UNITS/ML VIAL SQ SCH (21:50)
[2018-04-01] MEDS ORDERED: GABAPENTIN 300 MG CAP PO ONE (23:15)
[2018-04-02] VITALS (10 sets, daily range): BP systolic 92–123; BP diastolic 51–60; PULSE 76–100; RESP 16–18; TEMP 98.5–99.4; O2SAT 94–96
[2018-04-02 06:25] LABS: AUTOMATED NEUTROPHIL # 12.6 TH/MM3 (1.8-7.7); BASOPHIL % 0.2 % (0.0-2.0); HEMOGLOBIN 9.2 GM/DL (13.0-17.0); LYMPH % 6.3 % (9.0-44.0); LYMPHOCYTE # 0.9 TH/MM3 (1.0-4.8); MEAN CELL VOLUME 88.5 FL (80.0-100.0); MEAN CORPUSCULAR HGB CONC 32.8 % (32.0-36.0); MEAN PLATELET VOLUME 7.8 FL (7.0-11.0); MONO % 8.1 % (0.0-8.0); MONOCYTE # 1.2 TH/MM3 (0-0.9); NEUT % 85.4 % (16.0-70.0); PLATELET COUNT 167 TH/MM3 (150-450); RED BLOOD COUNT 3.16 MIL/MM3 (4.50-5.90); RED CELL DISTRIBUTION WIDTH 13.7 % (11.6-17.2); WHITE BLOOD COUNT 14.8 TH/MM3 (4.0-11.0)
[2018-04-02] MEDS: HEPARIN SODIUM - SQ 10,000 UNITS/ML VIAL SQ SCH ×2 (06:27→21:51)
[2018-04-02 06:49] LABS: ALBUMIN 2.8 GM/DL (3.4-5.0); BICARBONATE 20.6 MEQ/L (21.0-32.0); BLOOD UREA NITROGEN 47 MG/DL (7-18); CALCIUM 8.4 MG/DL (8.5-10.1); CHLORIDE 109 MEQ/L (98-107); CREATININE 2.76 MG/DL (0.60-1.30); GLOMERULAR FILTRATION RATE 22 ML/MIN (>89); GLUCOSE,RANDOM 109 MG/DL (74-106); SODIUM (NA) 140 MEQ/L (136-145)
[2018-04-02 06:51] LABS: ALT (GPT) 15 U/L (12-78); AST (GOT) 9 U/L (15-37)
[2018-04-02 06:54] LABS: ALKALINE PHOSPHATASE 57 U/L (45-117); TOTAL BILIRUBIN ADULT 0.5 MG/DL (0.2-1.0); TOTAL PROTEIN 5.7 GM/DL (6.4-8.2)
[2018-04-02] MEDS: SODIUM CHLORIDE 0.9% FLUSH 10 ML FLUSH IV FLUSH SCH ×2 (09:26→21:00)
[2018-04-02] MEDS: DOCUSATE SODIUM 50 MG/SENNA 8.6 MG TAB PO SCH (09:26)
[2018-04-02] MEDS: GABAPENTIN 300 MG CAP PO SCH ×2 (09:26→21:51)
--- NOTE | 2018-04-02 10:13 | RADRPT ---
EXAM DATE: 04/02/2018 9:32 AM EDT AGE/SEX: 82 years / Male INDICATIONS: Syncope. CLINICAL DATA: This is the patient's initial encounter. Patient reports that signs and symptoms have been present for 2 days and indicates a pain score of 1/10. MEDICAL/SURGICAL HISTORY: Hypertension. Epiretinal membrane right eye. Head trauma. Neuropathy. Atrial premature complex. Diverticulosis. CKD. Benign angiomyolipoma. Measles. . Right phaco catara ct removal. COMPARISON: No prior [place] exams available for comparison. No external comparison. VELOCITY PARAMETERS: ICA/CCA Ratio: Right 1.6 , Left 1.1 ICA: Right 121 cm/sec, Left 123 cm/sec CCA: Right 75 cm/sec, Left 112 cm/sec ECA: Right 79 cm/sec, Left 96 cm/sec Vertebral: Right 47 cm/sec antegrade, Left 53 cm/sec antegrade FINDINGS: Right Carotid: No significant stenosis is visualized. The waveforms are within normal limits. Left Carotid: No significant stenosis is visualized. The waveforms are within normal limits. Other: None. CONCLUSION: No evidence of flow-limiting carotid stenosis. Electronically signed by: Wu Esquivel MD 04/02/2018 10:11 AM EDT
[2018-04-02] MEDS ORDERED: RESP: ALBUTEROL 2.5 MG/IPRATROPIUM 0.5 MG NEB (PRN) NEB (13:00)
[2018-04-02] MEDS ORDERED: hydrALAZINE HCL 25 MG TAB PO PRN (13:00)
[2018-04-02] MEDS ORDERED: ACETAMINOPHEN 325 MG TAB PO PRN (13:00)
--- NOTE | 2018-04-02 13:11 | HHI.PR ---
Subjective Remarks Follow-up UTI/syncope/hypotension April 02, 2018-patient seen and examined, since admission has had no syncopal episode denies any seizure-like activity. BP low. by the bedside. Currently patient is afebrile Objective Vitals Vital Signs Date Time Temp Pulse Resp B/P (MAP) Pulse Ox O2 Delivery O2 Flow Rate FiO2 04/02/18 12:05 98.5 80 17 104/51 (68) 96 04/02/18 08:05 98.8 76 17 92/52 (65) 94 04/02/18 08:00 78 04/02/18 05:56 99.2 87 16 96/54 (68) 94 04/02/18 04:00 99 04/02/18 00:00 95 04/01/18 23:39 99.8 93 16 114/60 (78) 94 04/01/18 23:00 Room Air 04/01/18 21:33 100.9 107 16 110/55 (73) 93 04/01/18 20:00 106 04/01/18 19:31 04/01/18 18:08 100.0 114 19 158/74 (102) 97 Room Air 04/01/18 17:40 103 18 125/69 (87) 98 Room Air 04/01/18 15:50 103 18 129/61 (83) 97 Room Air 04/01/18 14:00 97 18 140/64 (89) 105 19 139/67 (91) 110 19 128/63 (84) 04/01/18 13:51 95 18 96 Room Air 04/01/18 13:48 95 18 150/76 (100) 96 Room Air 04/01/18 13:47 95 18 150/76 (100) 96 Room Air I/O 04/01/18 04/01/18 04/01/18 04/02/18 04/02/18 04/02/18 07:00 15:00 23:00 07:00 15:00 23:00 Intake Total 1100 ml 240 ml Output Total 350 ml 470 ml Balance 750 ml -230 ml Intake Oral 240 ml IV Total 1100 ml Output Urine Total 350 ml 470 ml # Bowel Movements 0 Result Diagram: 04/02/18 0452 04/02/18 0420 Imaging Last Impressions Carotid Artery Ultrasound 04/02/18 0000 Signed Impressions: CONCLUSION: No evidence of flow-limiting carotid stenosis. Chest X-Ray 04/01/18 1344 Signed Impressions: CONCLUSION: No acute cardiopulmonary abnormality is identified. Cervical Spine CT 04/01/18 1344 Signed Impressions: CONCLUSION: 1. 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 No evidence of any acute f racture Head CT 04/01/18 0000 Signed Impressions: CONCLUSION: 1. Negative CT Head non contrast. Objective Remarks GENERAL: NAD SKIN: Warm and dry. HEAD: Normocephalic. EYES: No scleral icterus. No injection or drainage. NECK: Supple, trachea midline. No JVD or lymphadenopathy. CARDIOVASCULAR: Regular rate and rhythm with III/ CRISTOFER RESPIRATORY: Breath sounds equal bilaterally. No accessory muscle use. GASTROINTESTINAL: Abdomen soft, non-tender, nondistended. MUSCULOSKELETAL: No cyanosis, or edema. BACK: Nontender without obvious deformity. No CVA tenderness. A/P Problem List: (1) Sepsis ICD Code: A41.9 - Sepsis, unspecified organism Status: Acute (2) Hypotension ICD Code: I95.9 - Hypotension, unspecified (3) CKD (chronic kidney disease) stage 4, GFR 15-29 ml/min ICD Code: N18.4 - Chronic kidney disease, stage 4 (severe) (4) UTI (urinary tract infection) ICD Code: N39.0 - Urinary tract infection, site not specified Status: Acute (5) Syncope ICD Code: R55 - Syncope and collapse Status: Acute Assessment and Plan 82-year-old man with Sepsis: d/t UTI, culture pending, continue with Rocephin IV UTI Currently on Rocephin pending culture report Syncope in a patient with heart murmur Head CT noted and review without any intracranial abnormality Check brain MRI without contrast to rule out ischemic event Carotid ultrasound noted in review without any stenosis 2D echo pending to rule out valvular abnormality versus other Check EEG to rule out seizure activity Hypotension Gentle IV fluid hydration H&H stable Check orthostatic BP Normochromic normocytic anemia H&H stable, continue to monitor Chronic kidney disease stage IV Patient currently at his baseline, continue to monitor BUN and creatinine and avoid all nephrotoxic drug DVT prophylaxis: Heparin Problem Qualifiers (1) Sepsis: Qualified Codes: A41.9 - Sepsis, unspecified organism (2) UTI (urinary tract infection): Qualified Codes: N39.0 - Urinary tract infection, site not specified (3) Syncope: Qualified Codes: R55 - Syncope and collapse Dami Elizabeth MD Apr 02, 2018 13:11
[2018-04-02] MEDS ORDERED: ONDANSETRON ODT 4 MG TAB PO PRN (14:15)
--- NOTE | 2018-04-02 14:44 | MG ---
cc: Jose Miguel Pierce MD, PhD DATE OF STUDY: 04/02/2018 TECHNIQUE: A 17-channel EEG. DESCRIPTION: The background rhythm reveals a symmetrical alpha rhythm, frequency of 8-9 Hz. Amplitude is about 5-10 microvolts. There are no lateralizing features present. No epileptiform features are identified. Photic stimulation results in a normal driving response. INTERPRETATION: Normal electroencephalogram. Jose Miguel Pierce MD, PhD LATISHA/KD , 02:18 PM , 02:44 PM
[2018-04-02] MEDS: SODIUM CHLOR 0.9% 1000 ML INJ 1,000 ML IV SCH (15:20)
[2018-04-02] MEDS ORDERED: cefTRIAXone INJ 2,000 MG in SODIUM CHLORIDE 0.9% INJ 100 ML IV SCH (16:00)
--- NOTE | 2018-04-02 17:58 | RADRPT ---
EXAM DATE: 04/02/2018 5:50 PM EDT AGE/SEX: 82 years / Male INDICATIONS: CVA. CLINICAL DATA: This is the patient's subsequent encounter. Patient reports that signs and symptoms h ave been present for 2 days and indicates a pain score of 0/10. MEDICAL/SURGICAL HISTORY: Renal insufficiency, chronic. None. COMPARISON: CT of the brain 04/01/2018 . TECHNIQUE: Multiplanar, multisequence examination of the brain was performed without contrast. FINDINGS: Cerebrum: The ventricles are normal for age. No evidence of midline shift, mass lesion, hemorrhage or acute infarction. No extraaxial fluid collections are seen. The pituitary gland and suprasellar cistern are normal in configuration. White Matter: Scattered foci of high FLAIR signal abnormality throughout the periventricular and sub cortical white matter both cerebral hemispheres.. Posterior Fossa: The cerebellum and brainstem are intact. The 4th ventricle is midline. The cerebel lopontine angle is unremarkable. The cerebellar tonsils are normal in position. Diffusion Imaging: No focal areas of restricted diffusion are seen. No evidence of acute infarction . Extracranial: The visualized portions of the orbits and paranasal sinuses are unremarkable. CONCLUSION: 1. No acute intracranial abnormality. 2. Chronic small vessel ischemic change. Electronically signed by: Feng Aaron MD 04/02/2018 5:56 PM EDT
--- NOTE | 2018-04-02 18:23 | EKG ---
Date Performed: 04/02/2018 Time Performed: 07:44:02 PTAGE: 82 years EKG: Sinus rhythm with PAC(s). Borderline ECG PREVIOUS TRACING : 04/01/2018 12.49 Since the previous tracing, no significant change noted DOCTOR: Josefa Astorga Interpretating Date/Time 04/02/2018 18:21:32
--- NOTE | 2018-04-02 19:25 | EKG ---
Date Performed: 04/01/2018 Time Performed: 12:49:30 PTAGE: 82 years EKG: SINUS TACHYCARDIA PACS ABNORMAL RHYTHM ECG PREVIOUS TRACING : 02/24/2018 08.23 Compared to previous tracing, rate faster DOCTOR: Josefa Astorga Interpretating Date/Time 04/02/2018 19:24:11
[2018-04-03] VITALS: BP 102/59; PULSE 100; PULSE 86; RESP 17; TEMP 98.9; O2SAT 92
[2018-04-03 04:00] VITALS: BP 92/58; PULSE 72; PULSE 90; RESP 17; TEMP 98.2; O2SAT 94
[2018-04-03 06:26] LABS: HEMATOCRIT 27.7 % (39.0-51.0); MEAN CELL VOLUME 88.3 FL (80.0-100.0); MEAN CORPUSCULAR HEMOGLOBIN 28.8 PG (27.0-34.0); MEAN CORPUSCULAR HGB CONC 32.6 % (32.0-36.0); PLATELET COUNT 152 TH/MM3 (150-450); RED BLOOD COUNT 3.13 MIL/MM3 (4.50-5.90); WHITE BLOOD COUNT 9.4 TH/MM3 (4.0-11.0)
[2018-04-03] MEDS: SODIUM CHLOR 0.9% 1000 ML INJ 1,000 ML IV SCH (06:38)
[2018-04-03 06:59] LABS: BICARBONATE 19.5 MEQ/L (21.0-32.0); CALCIUM 7.8 MG/DL (8.5-10.1); CREATININE 2.84 MG/DL (0.60-1.30)
[2018-04-03 08:00] VITALS: PULSE 96
[2018-04-03 08:05] VITALS: BP 121/59; PULSE 83; RESP 17; TEMP 98.3; O2SAT 94
[2018-04-03 08:38] LABS: BANDS 2 % (0-6); LYMPHOCYTES 25 % (9-44); MONOCYTES 6 % (0-8); NEUTROPHIL # MANUAL DIFF 6.2 TH/MM3 (1.8-7.7); POLYS (SEG NEUTROPHILS) 64 % (16-70)
[2018-04-03] MEDS: SODIUM CHLORIDE 0.9% FLUSH 10 ML FLUSH IV FLUSH SCH (09:00)
[2018-04-03] MEDS: GABAPENTIN 300 MG CAP PO SCH (09:16)
[2018-04-03] MEDS: HEPARIN SODIUM - SQ 10,000 UNITS/ML VIAL SQ SCH (09:17)
--- NOTE | 2018-04-03 10:40 | HHI.PR ---
Subjective Remarks Follow-up UTI/syncope/hypotension April 02, 2018-patient seen and examined, since admission has had no syncopal episode denies any seizure-like activity. BP low. by the bedside. Currently patient is afebrile April 03, 2018-patient seen and examined, currently afebrile and no syncopal episodes since admission. Looking forward going home Objective Vitals Vital Signs Date Time Temp Pulse Resp B/P (MAP) Pulse Ox O2 Delivery O2 Flow Rate FiO2 04/03/18 08:05 98.3 83 17 121/59 (79) 94 04/03/18 07:00 Room Air 04/03/18 07:00 Room Air 04/03/18 04:00 98.2 72 17 92/58 (69) 94 04/03/18 04:00 90 04/03/18 01:29 Room Air 04/03/18 00:00 100 04/03/18 00:00 98.9 86 17 102/59 (73) 92 04/02/18 20:00 99.4 83 18 123/60 (81) 94 04/02/18 20:00 100 04/02/18 15:55 98.5 80 17 107/59 (75) 96 04/02/18 15:00 87 04/02/18 12:05 98.5 80 17 104/51 (68) 96 04/02/18 12:00 87 I/O 04/02/18 04/02/18 04/02/18 04/03/18 04/03/18 04/03/18 07:00 15:00 23:00 07:00 15:00 23:00 Intake Total 240 ml 960 ml 1222 ml Output Total 470 ml 1800 ml 200 ml Balance -230 ml -840 ml 1022 ml Intake Oral 240 ml 960 ml 222 ml IV Total 1000 ml Output Urine Total 470 ml 1800 ml 200 ml # Bowel Movements 0 0 Result Diagram: 04/03/18 0535 04/03/18 0535 Imaging Last Impressions Carotid Artery Ultrasound 04/02/18 0000 Signed Impressions: CONCLUSION: No evidence of flow-limiting carotid stenosis. Brain MRI 04/02/18 0000 Signed Impressions: CONCLUSION: 1. No acute intracranial abnormality. 2. Chronic small vessel ischemic change. Chest X-Ray 04/01/18 1344 Signed Impressions: CONCLUSION: No acute cardiopulmonary abnormality is identified. Cervical Spine CT 04/01/18 1344 Signed Impressions: CONCLUSION: 1. 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 No evidence of any acute f racture Head CT 04/01/18 0000 Signed Impressions: CONCLUSION: 1. Negative CT Head non contrast. Objective Remarks GENERAL: NAD SKIN: Warm and dry. HEAD: Normocephalic. EYES: No scleral icterus. No injection or drainage. NECK: Supple, trachea midline. No JVD or lymphadenopathy. CARDIOVASCULAR: Regular rate and rhythm with III/ CRISTOFER RESPIRATORY: Breath sounds equal bilaterally. No accessory muscle use. GASTROINTESTINAL: Abdomen soft, non-tender, nondistended. MUSCULOSKELETAL: No cyanosis, or edema. BACK: Nontender without obvious deformity. No CVA tenderness. Procedures none A/P Problem List: (1) Sepsis ICD Code: A41.9 - Sepsis, unspecified organism Status: Resolved (2) Hypotension ICD Code: I95.9 - Hypotension, unspecified (3) CKD (chronic kidney disease) stage 4, GFR 15-29 ml/min ICD Code: N18.4 - Chronic kidney disease, stage 4 (severe) (4) UTI (urinary tract infection) ICD Code: N39.0 - Urinary tract infection, site not specified Status: Acute (5) Syncope ICD Code: R55 - Syncope and collapse Status: Resolved Assessment and Plan 82-year-old man with Sepsis: d/t UTI, culture NTD, continue with Rocephin IV UTI Urine culture positive for Citrobacter Koseri Currently on Rocephin, therefore will switch to PO abx Syncope in a patient with heart murmur Head CT noted and review without any intracranial abnormality Brain MRI negative Carotid ultrasound noted in review without any stenosis 2D echo pending to rule out valvular abnormality versus other EEG No epileptiform features are identified Hypotension Gentle IV fluid hydration H&H stable Check orthostatic BP Normochromic normocytic anemia H&H stable, continue to monitor Chronic kidney disease stage IV Patient currently at his baseline, continue to monitor BUN and creatinine and avoid all nephrotoxic drug DVT prophylaxis: Heparin Problem Qualifiers (1) Sepsis: Qualified Codes: A41.9 - Sepsis, unspecified organism (2) UTI (urinary tract infection): Qualified Codes: N39.0 - Urinary tract infection, site not specified (3) Syncope: Qualified Codes: R55 - Syncope and collapse Dami Elizabeth MD Apr 03, 2018 10:40
[2018-04-03] MEDS ORDERED: LACTCHW3 CHEW (10:46)
[2018-04-03] MEDS ORDERED: CEFU1TAB18 PO (10:46)
--- NOTE | 2018-04-03 10:48 | HHI.DS ---
Discharge Summary Admission Date Apr 01, 2018 at 16:15 Discharge Date: Apr 03, 2018 Admitting Diagnosis Sepsis; UTI; syncopal episode (1) Sepsis ICD Code: A41.9 - Sepsis, unspecified organism Status: Resolved (2) Hypotension ICD Code: I95.9 - Hypotension, unspecified (3) CKD (chronic kidney disease) stage 4, GFR 15-29 ml/min ICD Code: N18.4 - Chronic kidney disease, stage 4 (severe) (4) UTI (urinary tract infection) ICD Code: N39.0 - Urinary tract infection, site not specified Status: Acute (5) Syncope ICD Code: R55 - Syncope and collapse Status: Resolved Procedures none Brief History - From Admission 82-year-old male with a past medical history significant for neuropathy and chronic kidney disease presents the emergency department for evaluation of a syncopal episode. The patient reports that he has been having difficulty walking for several weeks secondary to knee pain and has been getting injections in his knees. He [place]. He is unsure whether he lost consciousness or not. He hit his forehead and sustained a small laceration that did not require repair. The patient reports he had urinary incontinence with the episode although states he has been having increasing urinary frequency and incontinence over the past several weeks. No seizure-like activity was observed. He denies any fever/ chills. No chest pain or shortness of breath. No abdominal pain. No nausea/ vomiting/diarrhea. No lateralizing signs/symptoms. CBC/BMP: 04/03/18 0535 04/03/18 0535 Significant Findings Laboratory Tests Test 04/01/18 13:54 04/01/18 14:35 04/01/18 15:40 04/01/18 17:35 White Blood Count 15.3 TH/MM3 (4.0-11.0) Red Blood Count 3.92 MIL/MM3 (4.50-5.90) Hemoglobin 11.1 GM/DL (13.0-17.0) Hematocrit 33.9 % (39.0-51.0) Neutrophils (%) (Auto) 89.1 % (16.0-70.0) Lymphocytes (%) (Auto) 3.9 % (9.0-44.0) Neutrophils # (Auto) 13.6 TH/MM3 (1.8-7.7) Lymphocytes # (Auto) 0.6 TH/MM3 (1.0-4.8) Monocytes # (Auto) 1.0 TH/MM3 (0-0.9) Blood Urea Nitrogen 49 MG/DL (7-18) Creatinine 2.93 MG/DL (0.60-1.30) Random Glucose 121 MG/DL (74-106) Chloride Level 108 MEQ/L (98-107) Estimat Glomerular Filtration Rate 21 ML/MIN (>89) Troponin I LESS THAN 0.02 NG/ML Urine Occult Blood TRACE (NEG) Urine Nitrite POS (NEG) Urine Leukocyte Esterase SMALL (NEG) Urine WBC 8 /hpf (0-5) Urine Bacteria MOD /hpf (NONE) Urine Mucus FEW /lpf (OCC) Test 04/01/18 23:04 04/02/18 04:20 04/02/18 04:52 04/03/18 05:35 Blood Urea Nitrogen 47 MG/DL (7-18) 49 MG/DL (7-18) Creatinine 2.76 MG/DL (0.60-1.30) 2.84 MG/DL (0.60-1.30) Random Glucose 109 MG/DL (74-106) Total Protein 5.7 GM/DL (6.4-8.2) Albumin 2.8 GM/DL (3.4-5.0) Calcium Level 8.4 MG/DL (8.5-10.1) 7.8 MG/DL (8.5-10.1) Aspartate Amino Transf (AST/SGOT) 9 U/L (15-37) Chloride Level 109 MEQ/L (98-107) 109 MEQ/L (98-107) Carbon Dioxide Level 20.6 MEQ/L (21.0-32.0) 19.5 MEQ/L (21.0-32.0) Estimat Glomerular Filtration Rate 22 ML/MIN (>89) 21 ML/MIN (>89) White Blood Count 14.8 TH/MM3 (4.0-11.0) Red Blood Count 3.16 MIL/MM3 (4.50-5.90) 3.13 MIL/MM3 (4.50-5.90) Hemoglobin 9.2 GM/DL (13.0-17.0) 9.0 GM/DL (13.0-17.0) Hematocrit 28.0 % (39.0-51.0) 27.7 % (39.0-51.0) Neutrophils (%) (Auto) 85.4 % (16.0-70.0) Lymphocytes (%) (Auto) 6.3 % (9.0-44.0) Monocytes (%) (Auto) 8.1 % (0.0-8.0) Neutrophils # (Auto) 12.6 TH/MM3 (1.8-7.7) Lymphocytes # (Auto) 0.9 TH/MM3 (1.0-4.8) Monocytes # (Auto) 1.2 TH/MM3 (0-0.9) Imaging Last Impressions Carotid Artery Ultrasound 04/02/18 Signed Impressions: CONCLUSION: No evidence of flow-limiting carotid stenosis. Brain MRI 04/02/18 Signed Impressions: CONCLUSION: 1. No acute intracranial abnormality. 2. Chronic small vessel ischemic change. Chest X-Ray 04/01/181343 Signed Impressions: CONCLUSION: No acute cardiopulmonary abnormality is identified. Cervical Spine CT 04/01/181343 Signed Impressions: CONCLUSION: 1. 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 No evidence of any acute f racture Head CT 04/01/18 Signed Impressions: CONCLUSION: 1. Negative CT Head non contrast. PE at Discharge GENERAL: NAD SKIN: Warm and dry. HEAD: Normocephalic. EYES: No scleral icterus. No injection or drainage. NECK: Supple, trachea midline. No JVD or lymphadenopathy. CARDIOVASCULAR: Regular rate and rhythm with III/ CRISTOFER RESPIRATORY: Breath sounds equal bilaterally. No accessory muscle use. GASTROINTESTINAL: Abdomen soft, non-tender, nondistended. MUSCULOSKELETAL: No cyanosis, or edema. BACK: Nontender without obvious deformity. No CVA tenderness. Hospital Course Patient admitted secondary to sepsis due to UTI for which she was started on IV antibiotics with monitoring of culture. IV fluid was provided due to low BP and ischemic CVA was ruled out with normal brain MRI and negative head CT. DVT and GI prophylaxis were provided and physical therapy was consulted. Prior to discharge, patient's conditions improve and he will be switched to p.o. antibiotics times 10 days Pt Condition on Discharge: Good Discharge Disposition: Discharge Home Discharge Time: <= 30 minutes Discharge Instructions DIET: Follow Instructions for: Heart Healthy Diet Activities you can perform: Regular-No Restrictions Follow up Referrals: PCP Follow-up - 1 Week New Medications: Cefuroxime (Ceftin) 250 Mg Tab 250 MG PO BID for Infection, #20 TAB Lactobacillus Acidophilus (Lactinex) 1 Chew 1 TAB CHEW BID for Nutritional Supplement, #20 TAB 0 Refills Continued Medications: Gabapentin (Gabapentin) 300 Mg Cap 300 MG PO BID, #30 CAP 0 Refills Dami Elizabeth MD Apr 03, 2018 10:48
== END 2018-04-03 12:57 | disposition home or self-care (01) | DRG 872 ==
LOC: NEPC 12:28 → NEDA 16:15 → N04B 19:25
PROVIDERS: ADMIT Hospitalist; ATTEND Hospitalist
DX: A41.9 Sepsis, unspecified organism (principal); N18.4 Chronic kidney disease, stage 4 (severe); N39.0 Urinary tract infection, site not specified; I95.9 Hypotension, unspecified; D64.9 Anemia, unspecified; G62.9 Polyneuropathy, unspecified; I12.9 Hypertensive chronic kidney disease with stage 1 through stage 4 chronic kidney disease, or unspecified chronic kidney disease; S00.83XA Contusion of other part of head, initial encounter; R55 Syncope and collapse; W19.XXXA Unspecified fall, initial encounter; R01.1 Cardiac murmur, unspecified; M25.569 Pain in unspecified knee; R26.2 Difficulty in walking, not elsewhere classified; Y92.510 Bank as the place of occurrence of the external cause; Z85.828 Personal history of other malignant neoplasm of skin
CPT/HCPCS: 70450; 70551; 71045; 72125; 80048; 80053; 81001; 82550; 83605; 83735; 84484; 85007; 85025; 85027; 85610; 85730; 87040; 87077; 87086; 87186; 93005; 93880; 95819; 96361; 96374; J0696; J1644; J7030